=== PATIENT | male | born 1955 | race Caucasian/White ===

== ENCOUNTER → 2019-10-15 09:39 | Outpatient (CLI) | payer MEDICARE, BC, SELFPAY ==
[2019-10-15 10:56] LABS: Add Manual Diff / Slide Review NO; Basophils Absolute Auto 0 /uL (0-100); Basophils Percent Auto 0.7 % (0-2); Eosinophils Absolute Auto 300 /uL (0-450); Eosinophils Percent Auto 4.6 % (2-4); Hematocrit 45.5 % (41-53); Hemoglobin 15.6 g/dL (13.5-17.5); Lymphocytes Absolute Auto 1200 /uL (1100-4500); Lymphocytes Percent Auto 17.8 % (25-40); Mean Corpuscular HGB Conc 34.2 % (30-36); Mean Corpuscular Hemoglobin 29.7 PG (26-34); Mean Corpuscular Volume 86.8 fL (80-100); Monocytes Absolute Auto 700 /uL (0-900); Monocytes Percent Auto 10.4 % (3-14); Neutrophils Absolute Auto 4600 /uL (1500-7000); Neutrophils Percent Auto 66.5 % (50-75); Platelet Count 226 X10^3/uL (150-400); Red Blood Cell Count 5.25 X10^6/uL (4.5-5.9); Red Cell Distribution Width 14.2 % (11.6-14.8); White Blood Cell Count 6.9 X10^3/uL (4.5-11.0)
[2019-10-15 10:58] LABS: BUN Creatinine Ratio 23.3 (6-22); Blood Urea Nitrogen 21 mg/dL (9-20); Calcium 9.8 mg/dL (8.4-10.2); Carbon Dioxide 31 mmol/L (22-32); Chloride 103 mmol/L (98-107); Estimated Glomerular Filt Rate > 60.0 mL/min (>60); Glucose 74 mg/dL (80-110); HEMOLYSIS < 15 (0-50); Potassium 4.9 mmol/L (3.4-5.1); Sodium 143 mmol/L (137-145)
== END ==
PROVIDERS: Visit Provider Orthopaedic Surgery
DX: Z01.818 Encounter for other preprocedural examination (principal); Z01.812 Encounter for preprocedural laboratory examination
CPT/HCPCS: 36415; 80048; 85025; 93005

== ENCOUNTER 2019-11-07 15:17 | Observation (INO) | payer MEDICARE, BC, SELFPAY ==
[2019-10-25 13:53] VITALS: BMI 27.5
[2019-11-06] VITALS (12 sets, daily range): BP systolic 106–145; BP diastolic 53–79; PULSE 54–104; RESP 10–16; TEMP 35.7–37.3; O2SAT 93–100; BMI 25.7
--- NOTE | 2019-11-06 | DI.RAD.S_ITS ---
PROCEDURE: XR LUMBAR SPINE 2-3V INDICATIONS: L5-S1 TLIF TECHNIQUE: Fluoroscopic images were obtained during an operative procedure and submitted for interpretation following the completion of the procedure. COMPARISON: Outside Film, MR, MR LUMBAR SPINE WITHOUT CONTRAST, 08/28/2019, 10:48. FINDINGS: These fluoroscopic images were performed for intraoperative localization. On these images, bilateral pedicle screws with vertical fixation rods in this patient can be seen in L5-S1. Please correlate with intraoperative findings. IMPRESSION: Normal intraoperative examination. Dictated by: Gopal Denis M.D. on 11/06/2019 at 13:08 Approved by: Gopal Denis M.D. on 11/06/2019 at 13:08
--- NOTE | 2019-11-06 10:23 | PM.PREOP ---
Pre-operative Note Interval Note History & Physical reviewed/Exam performed by Physician: Yes Changes to H&P: No
--- NOTE | 2019-11-06 10:24 | P.OP_ITS ---
Operative Date/Time/Diagnoses Date of procedure: 11/06/19 Time of procedure: 13:29 Pre-op diagnosis: Lumbar stenosis with radiculopathy Post-op diagnosis: same Procedure & Clinicians Procedure: L5-S1 TLIF (post/post interbody fusion) with cage L5, S1 screws Iliac crest bone graft aspirate L5-S1 laminectomy Use of microscope Placement of epidural catheter Same procedure as scheduled: Yes Indications: [age] year old male with intractable pain from stenosis. They had failed conservative management and requested operative intervention. Risks and benefits of surgery were discussed and appropriate consents were obtained. Surgeon: Edward Mares Podiatric Technician: Yajaira Marte Anesthesia Type: General Operative Notes Findings: None Closure Type: primary Specimen(s): none sent Prosthetic devices, grafts, tissues, transplants, or devices: NuVasive MAS Reline screws Globus Rise cage Applied: catheter Estimated Blood Loss (mL): 20 Blood products transfused: none Procedure in detail: The patient was brought to the operating room and intubated on the table. A time-out was performed. They were then rolled over to the well- padded Joao table in the prone position. Preoperative antibiotics were given. The back was prepped and draped in the standard sterile fashion. Using fluoroscopy, a 4 cm longitudinal incision was made to the well-marked right of the midline. We used Bovie to come down to and split the lumbodorsal fascia. Using fluoroscopy and monitoring, we then percutaneously placed Jamshidi needles down the pedicles of L5 and S1 on the right side. These were changed out to guidewires and then we tapped and then placed the NuVasive MAS Reline screw shanks. We then opened up the retractors and used Bovie to clear up the posterolateral gutter as well as medially along the lamina to the spinous processes. A bur was used to decorticate the transverse processes. We brought in the microscope. Using a combination of bur and Kerrison rongeurs, a laminectomy was performed from the right side. We cleared over past the midline and carefully depressed the dura until we were able to decompress the opposite side. We cleared out the neural foramen. The main decompression was primarily in the subarticular range and the foramen, which required a facetectomy to decompress. This completed the laminectomy at L5-S1. This was separate and distinct from the TLIF approach as we were decompressing the canal and the nerves. We then began the TLIF prep. We carefully cleaned up the remainder of the foramen until we could easily retract the exiting root as well as clearing medially below the dura and expose the disc space. The disc was prepped with bipolar and then an annulotomy was performed. We performed a diskectomy using a combination of paddles, oskar, pituitaries, and curettes. We distracted the disc using a paddle and locked the retractor in an open position. We then filled the disc space with Osteocel bone graft. We then placed the globus Rise cage under fluoroscopy and then filled this in with more bone graft. The distraction on the retractor was released to compress down. This completed the posterior interbody fusion portion of the TLIF at L5-S1. We then placed the screw heads, cecile, and locked down the set screws. The wound was copiously irrigated. A small stab incision was made over the PSIS. We used a Jamshidi needle to as pirate several mL of bone marrow from the pelvis. This was mixed with the remaining Osteocel and combined with all of the locally harvested bone graft and placed in the posterolateral gutter for the posterior fusion of the TLIF at L5- S1. An epidural catheter was then placed in the spinal canal by carefully depressing the dura and advancing it 6 cm cephalad under the remaining lamina without resis tance. The muscle fascia was closed. The catheter was then injected with a solution containing 4 mL of 0.5% Marcaine, 1 mg Stadol, 4 mg Duramorph, and 100 mcg of fentanyl. This was injected without resistance and the catheter was pulled. We then went to the opposite side. Again using fluoroscopy, a 3 cm incision was made and Bovie was used to come down to split the fascia. Using neural monitor ing and fluoroscopy, Jamshidi needles were advanced down the pedicles of L5 and S1 on the left side. These were switched over guidewires, tapped, and screws placed. We then placed a cecile and locked the set screws on this side. The wound was irrigated. The fascia was closed. Vancomycin powder was placed in the wounds. The superficial and skin were closed. A sterile dressing was placed. The patient was then rolled over extubated and brought to recovery room without complications. Complications: none Post-operative Condition: stable Disposition: PACU Plan for aftercare: Inpatient. Up with therapy.
[2019-11-06] MEDS: LACTATED RINGERS 1,000 ML 42 ML IV (10:38)
[2019-11-06] MEDS: MIDAZOLAM 2 MG/2 ML VIAL IV (11:00)
[2019-11-06] MEDS: CEFAZOLIN 2 GM/100 ML FROZ.PIGGY IV (11:04)
--- NOTE | 2019-11-06 11:48 | SUR.OPER ---
Prone on spine table, head in foam head support, padded chest and pelvic supports, gel pad at knees, lower legs supported by pillows; nipples, genitalia and toes free of pressure, arms secured on foam padded arm boards at <90 degrees abduction. Tape over blanket at thigh secured to table.
[2019-11-06] MEDS: VANCOMYCIN 1,000 MG VIAL 1000 MG TOP (11:52)
[2019-11-06] MEDS: THROMBIN (RECOMBINANT) 5,000 UNIT VIAL 5000 UNIT TOP (11:52)
[2019-11-06] MEDS: SODIUM CHLORIDE 0.9% 1,000 ML, GENTAMICIN 80 MG IRR (11:52)
[2019-11-06] MEDS: BUPIVACAINE 0.5% (PF) 4 ML, MORPHINE-PF 4 MG, BUTORPHANOL 1 MG, fentaNYL 100 MCG INJ (13:02)
[2019-11-06] MEDS: LACTATED RINGERS 1,000 ML 125 ML IV ×2 (14:53→22:56)
[2019-11-06] MEDS: HYDROCODONE/ACET 5/325 TABLET 1 TAB PO (15:01)
[2019-11-06] MEDS: CELECOXIB 200 MG CAPSULE 400 MG PO (15:03)
--- NOTE | 2019-11-06 15:40 | PT.IIE ---
Current Diagnoses Other intervertebral disc degeneration, lumbar region (11/06/19) Surgery Performed Operation Date: 11/06/19 12:15 Actual Procedures p L5S1 laminectomy and instrumentated fusion (TLIF) w/ bone graft - Edward Mares MD Surgical History (Last Updated 10/25/19 @ 14:10 by Priyanka Cali RN) Hx of colonoscopy (Acute) No history of previous surgery (Acute) Medical History (Last Updated 10/25/19 @ 14:10 by Priyanka Cali RN) Arthritis (Acute) Colonic polyp (Acute) GERD (gastroesophageal reflux disease) (Acute) HLD (hyperlipidemia) (Acute) Psoriasis (Acute) Psoriatic arthritis (Acute) Sciatica (Acute) Physical Therapy Inpatient Evaluation/Re-Eval M1 PT/OT-IP Prior Functional Status Start: 11/06/19 16:55 Freq: NEEDED Status: Active Protocol: Document 11/06/19 15:40 AB (Rec: 11/06/19 17:07 AB [id number]) Medical Review Prior Functional Status Medical History Reviewed Yes Communication able to make needs known Mobility and Gait pt stated that he is independent with all mobilities and ambulation without AD Social History Household Members spouse Living Arrangements House Number of Floors (Floors) One Floor Number of Stairs To Enter/Railing? 2 steps to enter with R rail ascending Home Environment Standard Height Toilet,Walk in Shower,Tub/Shower Home Equipment Hand Held Shower M2 PT-IP Current Condition Start: 11/06/19 16:55 Freq: NEEDED Status: Active Protocol: Document 11/06/19 15:40 AB (Rec: 11/06/19 17:07 AB [id number]) Physical Therapy Current Condition Current Condition Evaluation Date 11/06/19 Treatment Diagnosis s/cp L5S1 TLIF; difficulty in walking Onset Date 11/06/2019 Precautions Lumbar Precautions Log Roll,No Twisting,Limit Bending,Lifting Restriction of 10 lbs,Gait Belt above Incisional Area M3 PT-IP Subjective Start: 11/06/19 16:55 Freq: NEEDED Status: Active Protocol: Document 11/06/19 15:40 AB (Rec: 11/06/19 17:07 AB [id number]) Subjective Physical Therapy Visit Type Type Initial Evaluation Visit Start Time 15:40 Visit Stop Time 16:25 Total Visit Minutes 45 Number of EDITOR MANAGING NEWSPAPER Visits 0 Physical Therapy Visit Comments Patient Comments pt agreeable to do PT Therapy Pain Assessment Pain When Pain Assessed At Rest Pain Present Pain Present Pain Reported Location Back Intensity 4 M4 PT-IP Mobility and Gait Start: 11/06/19 16:55 Freq: NEEDED Status: Active Protocol: Document 11/06/19 15:40 AB (Rec: 11/06/19 17:07 AB [id number]) PT-Bed Mobility Assessment Rolling Type of Rolling Log Rolling Level of Assist Standby Assistance Supine to Sit Supine to Sit Standby Assistance Sit to Supine Sit to Supine Standby Assistance Scooting Scooting to Edge of Bed Standby Assistance PT-Transfer Assessment Sit to and From Stand Sit to and from Stand Minimal Assistance,1 Person Assistance,Use of Upper Extremities Equipment Transfer Assistive Device Gait Belt,Front Wheeled Walker Orthotic/Prosthetic Devices or Brace: No Comments Mobility Comments educated pt on back precautions and log roll bed mobility. pt completed bed mobility supine to sit SBA with cues for techniques. pt was able to sit on EOB SBA. completed sit to stand min A and cues and ambulated in room using FWW min A and cues. pt requested to go back to bed afterwards. completed sit to supine SBA and cues. pt completed supine<>sit again SBA but with cues needed. positioned pt on bed. call light and table placed within reach. Left pt with spouse in room. Gait Assessment Gait Gait Assistance Required: Minimum Assistance,1 Person Assist Distance (Feet) 25 Able to Maintain Weight Bearing Status Yes During Gait Assistive Devices Assistive Device Gait Belt,Front Wheeled Walker Orthotic/Prosthetic Devices or Brace: No Gait Deviations General Gait Pattern Antalgic,Decreased Stride Length,Decreased Feet Clearance,Step-to Gait Factors Limiting Gait Function Factors Limiting Gait Function Decreased Activity Tolerance, Decreased Strength,Limited Range of Motion,Pain,Poor Balance,Poor Safety Awareness Comments Gait Comments pt ambulated in room ~ 25 ft using FWW min a and cues. pt presents with unsteady gait with decrease step length and decrease elmer. PT-Balance Assessment Sitting Balance and Reactions Static Sitting Balance Ability Good Dynamic Sitting Balance Ability Good Standing Balance and Reactions Static Standing Balance Ability Fair Dynamic Standing Balance Ability Fair Device Used FWW M5 PT-IP Objective Assessments Start: 11/06/19 16:55 Freq: NEEDED Status: Active Protocol: Document 11/06/19 15:40 AB (Rec: 11/06/19 17:07 [id number]) Orientation Orientation/Cognition Level of Alertness Alert Orientation Name,Place,Situation Language Function Ability No Deficits Noted Safety Awareness Understands Safety Issues Memory Description Short Term Impaired Gross Range of Motion Lower Extremity ROM Assessment Within Functional Limits Strength Lower Extremity Strength Assessment Within Functional Limits Coordination Assessment Gross Coordination Gross Coordination WNL Sensation Assessment Sensation Gross Sensation WNL Muscle Tone Muscle Tone WNL Yes M6 PT-IP Treatment Start: 11/06/19 16:55 Freq: NEEDED Status: Active Protocol: Document 11/06/19 15:40 AB (Rec: 11/06/19 17:07 [id number]) Physical Therapy Treatment Education Education Provided Precautions,Weight Bearing Status,Post-Op Packet,Safety M7 PT-IP Assessment and Plan Start: 11/06/19 16:55 Freq: NEEDED Status: Active Protocol: Document 11/06/19 15:40 AB (Rec: 11/06/19 17:07 [id number]) PT Summary Assessment and Plan Potential Rehabilitation Potential Good Status of Condition at Evaluation Stable Summary Impairments Pain,ROM,Strength,Balance,Bed Mobility,Transfers,Gait, Activity Tolerance Assessment Summary pt requiring min A with ambulation using FWW. Pt does not have any DME and spouse will try to borrow a FWW and a shower chair. will have to f /u if spouse was able to obtain one. d/c plan depending on progress and will have to conduct caregiver training when appropriate as well as stair climbing training. will continue to asses pt's progress. Goals Bed Mobility Goal Independent Transfer Goal Independent,Front Wheeled Walker Gait Goal Independent,Front Wheel Walker Gait Distance 250 Other Goals up/down 2 steps R rail ascending SBA Days to Meet Goals 5 Frequency of Treatment Frequency Of Treatment Twice a Day Treatment Plan Physical Therapy Treatment Plan Bed Mobility Training,Transfer Training,Gait Training, Therapeutic Exercise,Balance Retraining,Post Op Education, Discharge Planning,Hot or Cold Pack,Neuromuscular Re-ed, Coordination Retraining,Manual Therapy Other Recommendations and Next Treatment ambulation, caregiver training Focus , stair training Recommendations To Nursing Amount of Assist Needed 1 Person Assist Discharge Recommendations PT Discharge Recommendations Home with Assistance Equipment Needed for Home Before FWW: if spouse was not able to Discharge obtain one for pt
[2019-11-06] MEDS: HYDROCODONE/ACET 5/325 TABLET 2 TAB PO ×2 (16:34→20:07)
[2019-11-06] MEDS: SENNOSIDES 8.6 MG TABLET 17.2 MG PO (20:06)
[2019-11-06] MEDS: CELECOXIB 200 MG CAPSULE PO (20:07)
[2019-11-06] MEDS: DOCUSATE 100 MG CAPSULE PO (20:07)
[2019-11-06] MEDS: SIMVASTATIN 20 MG TABLET PO (22:16)
[2019-11-07] VITALS (7 sets, daily range): BP systolic 117–138; BP diastolic 61–76; PULSE 49–59; RESP 16–17; TEMP 36.6–37.2; O2SAT 96–100
[2019-11-07] MEDS: HYDROCODONE/ACET 5/325 TABLET 2 TAB PO ×4 (00:24→17:49)
[2019-11-07 05:53] LABS: Hematocrit 37.5 % (41-53); Hemoglobin 13.3 g/dL (13.5-17.5)
[2019-11-07] MEDS: PANTOPRAZOLE 20 MG TABLET PO (06:10)
--- NOTE | 2019-11-07 07:53 | PM.PNPO.1 ---
Subjective Subjective Date Patient Seen: 11/07/19 Time Patient Seen: 07:53 Interval history: He is doing well. Pain about 4. No leg symptoms. Exam Vital Signs (past 8 hours): - 11/07/19 00:10 11/07/19 04:10 Temperature 97.9 F 98.2 F Pulse Rate 59 L 49 L Respiratory Rate 16 16 Blood Pressure 122/73 117/61 Pulse Oximetry 96 100 Oxygen Delivery Method Room Air Oxygen Flow Rate 0 Const Orientation: alert and oriented x3 Back/Spine/Pelvis Other: Mild drainage. 5/5 motor both lower extremities Objective Labs Result Diagrams: 11/07/19 05:35 Labs: Laboratory Results - last 24 hr 11/07/19 05:35 Hgb 13.3 L Hct 37.5 L Assessment & Plan Post-op Postoperative Procedures: Procedures Operation Date: 11/06/19 12:15 Actual Procedures Side Surgeon p L5S1 laminectomy and instrumentated fusion (TLIF) w/ bone graft Edward Mares MD he is doing well. Will mobilize today with physical therapy. Consider discharge home either this afternoon or tomorrow depending on how he does with therapy. Quality VTE Deep Vein Thrombosis/Pulmonary Embolism Present on Admission: No
[2019-11-07] MEDS: ASPIRIN EC 81 MG TABLET PO (09:40)
[2019-11-07] MEDS: DOCUSATE 100 MG CAPSULE PO ×2 (09:40→21:27)
[2019-11-07] MEDS: CELECOXIB 200 MG CAPSULE PO ×2 (09:40→21:27)
--- NOTE | 2019-11-07 10:11 | CM.DANOTE ---
DCP/Assessment: Reviewed chart. Patient is a 64yr old male [facility] lami performed by Dr. Mares on 11-06-19. Primary payor is 1)Medicare 2) out of State [employer]. Met wiht patient explained CM/SW role. Patient alert and oriented at time of visit. Patient reports that he is feeling good. Patient hopes to d/c home later today or most likely tomorrow. Therapy evaluations pending. Patient reports that his spouse is attempted to obtain FWW to borrow for patient for home use. Patient made aware that is she is unable to obtain to let [facility] staff know. P: Home when medically stable. Patient may need FWW order if spouse cannot obtain one to borrow. MICH Espinoza Discharge Planning/Care Management CM Discharge Assessment Start: 11/07/19 09:30 Freq: Status: Active Protocol: Document 11/07/19 10:06 KJS (Rec: 11/07/19 10:11 KJS [id number]) Discharge Planning Assessment Assigned Drosophere Operator MICH Espinoza Contact Information Sasha Gotti (spouse) # Advance Directives? No History Provided By Patient,Medical Record Prior Living Arrangements House Household Members spouse Type of transporation used prior to Drives own vehicle admit Independent with ADL's Yes Is patient alert and oriented? Yes Caregiver for Another No Comment Spouse trying to obtain FWW for patient to borrow. Barriers to Discharge No Discharge Plan Home Transportation Arrangement Spouse Whiteboard Updated in Patient Room with Yes name and ext. # of Drosophere Operator Review Status In Process Next Review Type Continued Stay Review Pre-Anesthesia Assessment Start: 10/25/19 13:53 Freq: Status: Complete Protocol: Document 10/25/19 13:53 CAB (Rec: 10/25/19 14:17 CAB [id number]) Pre-Anesthesia Assessment Patient Information Reviewed Via Phone Assessment Assessment Completed With Patient Diagnostic Results BMP/CMP,CBC,EKG Comment Labs/EKG @ 10/15/19 Primary Care Provider Darion Emerson Seen Specialist in Last 12 Months Yes Specialist Seen Orthopedist Primary Language Sinhala Head Operator Sulfide Required No Height 176.53 cm Weight 85.729 kg Body Mass Index (BMI) 27.5 Hearing Ability Normal Visual Impairment No Limitations Visual Assist Glasses Dentition Type Teeth, Natural Present,Partial - Lower Barriers to Learning None Other Aids No Hx Anesthesia Reactions No: previous anesthesia history Hx Family Anesthesia Reaction No Hx Malignant Hyperthermia No Hx Blood Transfusions No Anesthesia Review Requested No alcohol intake current alcohol intake frequency a few times a week Smoking Status Former smoker how long ago did patient quit smoking Quit approx 5 years ago Substance Use Type does not use Pain Present Pain Reported Musculoskeletal Symptoms Abnormal Gait,Back Pain, Difficulty Walking,Joint Pain, Radiating Pain into Limb History of Falling (Recent or History of No ) Patient is completely paralyzed or No completely immobile Mental Status Oriented to own ability Is patient on oxygen? No Does patient have LAZCANO/SOB No Hx Sleep Apnea No Currently Taking a Beta Roger No Can You Climb a Flight of Stairs Without Yes SOB Hx Chest Pain No Hx SOB No Hx Syncope or Dizziness No Anti-Coagulant Therapy No: ASA 81mg-for general health Has a Rug Cleaner No Cardiac Testing No Hx Pacemaker/ICD No Pacemaker Rep Required? No Cardiac Clearance Received Not Applicable Diet Type At Home Regular dysphagia No Urinary Catheter Present No Hx Urinary Self Catheterization No Diabetes No Hx Drug Resistant Organism No Presence of External or Internal Medical No Devices Have you traveled outside the [facility] in the last 30 days? Comment [place] 09/30/19-10/10/19 Marital Status Lives With spouse Prior Living Arrangements House Number of Floors (Floors) One Floor Support System Spouse Does the Patient Have Assistance After Yes Surgery Patient Discharge Plan Description Return Home Comment Pt advised 1-2 day length of stay per surgeon Feels Safe in Current Environment Yes Been Physically Hurt or Threatened By a No Person in Current Environment Do you have thoughts of harming yourself None or others? Are you currently considering suicide? No Do you have a plan to hurt yourself or No Plan others? Do You Have Any Spiritual Beliefs That No May Affect Your HC Choices? Do You Have Any Cultural Practices That No May Affect Your HC Choices? Who Can We Speak to About Patient's Care Family, friends Identifying Code for Release of Patient Declines to issue Information Health Care Proxy/Next of Kin Sasha () Health Care Proxy Emergency Contact Name Sasha () Emergency Contact Advance Directives? No Power of Put In Beat Adjuster No PAC Instructions Durable medical equipment, Medications to take/avoid, Nasal antibiotic,No ETOH/ petroleum product on skin DOS, NPO,Post-op transportation,Pre -surgical wash,Sturdy shoes/ comfortable clothes,Do not bring valuables and remove jewelry
--- NOTE | 2019-11-07 10:15 | PT.IPTN ---
Current Diagnoses Other intervertebral disc degeneration, lumbar region (11/06/19) Surgery Performed Operation Date: 11/06/19 12:15 Actual Procedures p L5S1 laminectomy and instrumentated fusion (TLIF) w/ bone graft - Edward Mares MD Physical Therapy Treatment Note M2 PT-IP Current Condition Start: 11/06/19 16:55 Freq: NEEDED Status: Active Protocol: Document 11/06/19 15:40 AB (Rec: 11/06/19 17:07 AB [id number]) Physical Therapy Current Condition Current Condition Evaluation Date 11/06/19 Treatment Diagnosis s/cp L5S1 TLIF; difficulty in walking Onset Date 11/06/2019 Precautions Lumbar Precautions Log Roll,No Twisting,Limit Bending,Lifting Restriction of 10 lbs,Gait Belt above Incisional Area M3 PT-IP Subjective Start: 11/06/19 16:55 Freq: NEEDED Status: Active Protocol: Document 11/07/19 10:15 DLM (Rec: 11/07/19 11:07 DLM [id number]) Subjective Physical Therapy Visit Type Type Treatment Note Visit Start Time 09:40 Visit Stop Time 10:15 Total Visit Minutes 35 Number of HEALTHCARE SCIENCE SPECIALIST Visits 0 Physical Therapy Visit Comments Patient Comments He has questions about log rolling and if he can lie on his side Therapy Pain Assessment Pain When Pain Assessed During Mobility Pain Present Pain Present Pain Reported Location Back Intensity 4 Scale Used Numeric (1 - 10) Description Aching Pain Behaviors Guarding Pain Management Techniques Re-positioning,Timing of Activity with Medications M4 PT-IP Mobility and Gait Start: 11/06/19 16:55 Freq: NEEDED Status: Active Protocol: Document 11/07/19 10:15 DLM (Rec: 11/07/19 11:07 DLM [id number]) PT-Bed Mobility Assessment Rolling Type of Rolling Log Rolling,Roll to Right,Roll to Left Level of Assist Standby Assistance Supine to Sit Supine to Sit Standby Assistance Sit to Supine Sit to Supine Standby Assistance Scooting Scooting to Edge of Bed Independent PT-Transfer Assessment Sit to and From Stand Sit to and from Stand Standby Assistance,Use of Upper Extremities Equipment Transfer Assistive Device Gait Belt,Front Wheeled Walker Transfers Transfer Destination Chair Transfer Technique Stand Step Pivot Transfer Ability Level of Assist Standby Assistance,Use of Upper Extremities Comments Mobility Comments Pt up to recliner this visit with call light close, educated pt in how to adjust the chair for comfort. Gait Assessment Gait Gait Assistance Required: Standby Assistance Distance (Feet) 200 Assistive Devices Assistive Device Gait Belt,Front Wheeled Walker Factors Limiting Gait Function Factors Limiting Gait Function Decreased Activity Tolerance Comments Gait Comments educated pt in safe use of FWW for gait Stair Climbing Assessment Evaluation Level of Assist On Stairs Standby Assistance Devices Stair Climbing Assistive Devices Left Railing Technique/Endurance Stair Climbing Direction Ascend and Descend Stair Climbing Technique Step Over Step,Step to Step Number of Steps Climbed 3 Stair Climbing Set # Repetitions (reps) 1 Comments Stair Climbing Comments mild increase in pain in his back during stairs but able to manage it by using step-to technique PT-Balance Assessment Sitting Balance and Reactions Static Sitting Balance Ability Good Dynamic Sitting Balance Ability Good Standing Balance and Reactions Static Standing Balance Ability Good Dynamic Standing Balance Ability Good Device Used FWW M5 PT-IP Objective Assessments Start: 11/06/19 16:55 Freq: NEEDED Status: Active Protocol: Document 11/06/19 15:40 AB (Rec: 11/06/19 17:07 AB [id number]) Orientation Orientation/Cognition Level of Alertness Alert Orientation Name,Place,Situation Language Function Ability No Deficits Noted Safety Awareness Understands Safety Issues Memory Description Short Term Impaired Gross Range of Motion Lower Extremity ROM Assessment Within Functional Limits Strength Lower Extremity Strength Assessment Within Functional Limits Coordination Assessment Gross Coordination Gross Coordination WNL Sensation Assessment Sensation Gross Sensation WNL Muscle Tone Muscle Tone WNL Yes M6 PT-IP Treatment Start: 11/06/19 16:55 Freq: NEEDED Status: Active Protocol: Document 11/07/19 10:15 DLM (Rec: 11/07/19 11:07 DL [id number]) Physical Therapy Treatment Exercises Exercises Ankle Pumps Education Education Provided Precautions,Post-Op Packet, Safety Other Treatments Other Treatment Performed answered his 's questions about home safety issues and progression of activity at home M7 PT-IP Assessment and Plan Start: 11/06/19 16:55 Freq: NEEDED Status: Active Protocol: Document 11/07/19 10:15 DLM (Rec: 11/07/19 11:07 DL [id number]) PT Summary Assessment and Plan Summary Impairments Pain,ROM,Strength,Balance,Bed Mobility,Transfers,Gait, Activity Tolerance Progress Towards Goals Progressing Toward Goals Assessment Summary Saurav is progressing well post -op. He tolerated gait in the [place] well with fWW. Pt and his appear anxious about managing his post-op precautions at home. Education provided. He appears safe to discharge home with his when he is medically cleared. Goals Bed Mobility Goal Independent Transfer Goal Independent,Front Wheeled Walker Gait Goal Independent,Front Wheel Walker Gait Distance 250 Other Goals up/down 2 steps R rail ascending SBA Days to Meet Goals 5 Frequency of Treatment Frequency Of Treatment Twice a Day Treatment Plan Physical Therapy Treatment Plan Bed Mobility Training,Transfer Training,Gait Training, Therapeutic Exercise,Balance Retraining,Post Op Education, Discharge Planning,Hot or Cold Pack,Neuromuscular Re-ed Other Recommendations and Next Treatment continue spine precaution Focus education Recommendations To Nursing Amount of Assist Needed 1 Person Assist Discharge Recommendations PT Discharge Recommendations Home with Assistance Equipment Needed for Home Before FWW: if spouse was not able to Discharge obtain one for pt
--- NOTE | 2019-11-07 11:15 | OT.IP.EVAL ---
Current Diagnoses Other intervertebral disc degeneration, lumbar region (11/06/19) Surgery Performed Operation Date: 11/06/19 12:15 Actual Procedures p L5S1 laminectomy and instrumentated fusion (TLIF) w/ bone graft - Edward Mares MD Past Medical History (Last Updated 10/25/19 @ 14:10 by Priyanka Cali, RN) Arthritis (Acute) Colonic polyp (Acute) GERD (gastroesophageal reflux disease) (Acute) HLD (hyperlipidemia) (Acute) Psoriasis (Acute) Psoriatic arthritis (Acute) Sciatica (Acute) Surgical History (Last Updated 10/25/19 @ 14:10 by Priyanka Cali RN) Hx of colonoscopy (Acute) No history of previous surgery (Acute) Occupational Therapy Inpatient Evaluation/Re-Eval M1 PT/OT-IP Prior Functional Status Start: 11/07/19 11:15 Freq: NEEDED Status: Active Protocol: Document 11/07/19 11:16 [facility] (Rec: 11/07/19 11:38 [facility] [id number]) Medical Review Prior Functional Status Medical History Reviewed Yes Communication able to make needs known Mobility and Gait pt stated that he is independent with all mobilities and ambulation without AD Activities of Daily Living and IADL's Per pt states was independent with ADl and IADL's prior. Social History Household Members spouse Living Arrangements House Number of Floors (Floors) One Floor Number of Stairs To Enter/Railing? 2 steps to enter with R rail ascending Home Environment Standard Height Toilet,Walk in Shower,Tub/Shower Home Equipment Hand Held Shower M2 OT-IP Current Condition Start: 11/07/19 11:15 Freq: Status: Active Protocol: Document 11/07/19 11:16 [facility] (Rec: 11/07/19 11:38 [facility] [id number]) Occupational Therapy Current Condition Current Condition Evaluation Date 11/07/19 Treatment Diagnosis S/P L5-S1 Diagnosis Onset Date 11/06/19 Post Operative Precautions Lumbar Precautions Log Roll,No Twisting,Limit Bending,Lifting Restriction of 10 lbs,Gait Belt above Incisional Area Weight Bearing Status Weight Bearing Status Weight Bear as Tolerated M3 OT- IP Subjective and Pain Start: 11/07/19 11:15 Freq: Status: Active Protocol: Document 11/07/19 11:16 [facility] (Rec: 11/07/19 11:38 [facility] [id number]) OT- Subjective Occupational Therapy Visit Type Type Initial Evaluation Visit Start Time 11:00 Visit Stop Time 11:15 Occupational Therapy Visit Comments Patient Comments Initally pt just wanting to rest and then agreed to get up for OT eval. Pt requesting to shower tomorrow when pt's present for training. Patient/Caregiver Goals To go home tomorrow. OT Pain Assessment Pain When Pain Assessed At Rest Pain Present Pain Present Pain Reported Location Back Intensity 5 Scale Used Numeric (1 - 10) M4 OT- IP ADL's Start: 11/07/19 11:15 Freq: Status: Active Protocol: Document 11/07/19 11:16 [facility] (Rec: 11/07/19 11:38 [facility] [id number]) OT [id number] Comments OT Self-Feeding Comments Not at meal time. OT ADL-Grooming Comments OT Grooming Comments Pt requesting to do grooming needs after lunch. OT ADL-Dressing General Eval Lower Body Dressing Ability Standby Assistance Comments OT Dressing Comments Pt able to comfortably cross his legs to be able to toshia/ doff his socks. Able to show pt LB dressing equipment and at this time will not need any . Pt states can assist him in the shower as needed. OT ADL-Toileting General Evaluation Toileting Ability Standby Assistance Comments OT Toileting Comments VC for incorporation of back precautions. Pt shown to stand with FWW over the toilet or just sit to the toilet as pt states will do now. Pt has a counter to push up from to stand at home but feeling more comfortable to push up from the FWW at this time and able to do so safely. OT ADL-Bathing Comments OT Bathing Comments Pt states to shower tomorrow. M5 OT- IP IADL's Start: 11/07/19 11:15 Freq: Status: Active Protocol: Document 11/07/19 11:16 [facility] (Rec: 11/07/19 11:38 [facility] [email or web address]) OT-Instrumental Activities of Daily Living Home Safety Awareness Home Safety Comments Pt's to assist for IADl needs at home. M6 OT- IP Functional Cognition Start: 11/07/19 11:15 Freq: Status: Active Protocol: Document 11/07/19 11:16 [facility] (Rec: 11/07/19 11:38 [facility] [id number]) Cognitive Factors Limiting Selfcare Function Cognitive Ability Level of Alertness Alert Patient Orientation Name,Place,Situation Attention Span Ability Capable of Focused Attention, Capable of Sustained Attention Ability to Follow Commands Able to Follow One Step Commands Memory Description Short Term Impaired Safety Awareness Decreased Ability to Apply Precautions Cognitive Comments Cognitive Assessment Comments Pt needing vc to incorporate back precautions during ADl and functional mobility needs. Pt trying to twist to flush the toilet and needing vc to stop. 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 OT- Balance Assessment Sitting Balance and Reactions Static Sitting Balance Ability Normal Dynamic Sitting Balance Ability Good Standing Balance and Reactions Static Standing Balance Ability Fair M8 OT- IP Objective Assessments Start: 11/07/19 11:15 Freq: Status: Active Protocol: Document 11/07/19 11:16 [facility] (Rec: 11/07/19 11:38 [facility] [id number]) OT Gross Range of Motion Upper Extremity Range of Motion Assessment Within Functional Limits OT Strength Upper Extremity Strength Assessment Within Functional Limits OT-Muscle Tone Assessment Muscle Tone WNL Yes M9 OT- IP Assessment and Plan Start: 11/07/19 11:15 Freq: Status: Active Protocol: Document 11/07/19 11:16 [facility] (Rec: 11/07/19 11:38 [facility] [email or web address]) OT Summary Assessment and Plan Potential Rehabilitation Potential Good Analytic Complexity at Evaluation Low Summary OT Impairments Pain,Functional Cognition, Functional Mobility,Dressing, Toileting,Bathing,Toilet Transfers,Shower Transfers Progress Towards Goals Progressing Toward Goals Assessment Summary Pt low complexity and main barrier are steps, and pt remembering to incorporate back precautions for needs. Pt looking to go home tomoorow after caregiver training with his . Pt's not present for OT eval as out trying to obtain a FWW and shower chair. Goals Grooming Goal Independent Dressing Goal Independent Toileting Goal Independent Bathing Goal Standby Assistance Toilet Transfer Goal Independent Shower Transfer Goal Contact Guard Assistance Patient/Caregiver Education Goal Demonstrate Post-Op Precautions,Caregiver Independent Assisting Patient Days to Meet Goals 2 Frequency of Treatment Frequency Of Treatment Once a Day Treatment Plan OT Treatment Plan ADL Training,Functional Cognition Training,Functional Mobility,Patient/Family Education,Discharge Planning Other Treatment Recommendations and Next Shower and caregiver training. Treatment Focus Discharge Recommendations OT Discharge Recommendations Home with Assistance Home Equipment Needs FWW, shower chair.
[2019-11-07] MEDS: HYDROCODONE/ACET 5/325 TABLET 1 TAB PO ×2 (13:08→21:32)
--- NOTE | 2019-11-07 13:18 | PT.IPTN ---
Current Diagnoses Other intervertebral disc degeneration, lumbar region (11/06/19) Surgery Performed Operation Date: 11/06/19 12:15 Actual Procedures p L5S1 laminectomy and instrumentated fusion (TLIF) w/ bone graft - Edward Mares MD Physical Therapy Treatment Note M2 PT-IP Current Condition Start: 11/06/19 16:55 Freq: NEEDED Status: Active Protocol: Document 11/06/19 15:40 AB (Rec: 11/06/19 17:07 AB [id number]) Physical Therapy Current Condition Current Condition Evaluation Date 11/06/19 Treatment Diagnosis s/cp L5S1 TLIF; difficulty in walking Onset Date 11/06/2019 Precautions Lumbar Precautions Log Roll,No Twisting,Limit Bending,Lifting Restriction of 10 lbs,Gait Belt above Incisional Area M3 PT-IP Subjective Start: 11/06/19 16:55 Freq: NEEDED Status: Active Protocol: Document 11/07/19 12:57 SP (Rec: 11/07/19 13:32 SP [email or web address]) Subjective Physical Therapy Visit Type Type Treatment Note Visit Start Time 12:57 Visit Stop Time 13:18 Total Visit Minutes 21 Number of SERVICE DELIVERY MANAGER Visits 1 Physical Therapy Visit Comments Patient Comments Pt wanting to review log roll and stairs. Therapy Pain Assessment Pain When Pain Assessed During Mobility Pain Present Pain Present Pain Reported Location Back Intensity 3 Scale Used Numeric (1 - 10) Description Aching Pain Management Techniques Re-positioning,Timing of Activity with Medications M4 PT-IP Mobility and Gait Start: 11/06/19 16:55 Freq: NEEDED Status: Active Protocol: Document 11/07/19 12:57 SP (Rec: 11/07/19 13:50 SP [email or web address]) PT-Bed Mobility Assessment Rolling Type of Rolling Log Rolling,Roll to Right,Roll to Left Level of Assist Standby Assistance Supine to Sit Supine to Sit Standby Assistance Sit to Supine Sit to Supine Standby Assistance Scooting Scooting to Edge of Bed Independent PT-Transfer Assessment Sit to and From Stand Sit to and from Stand Standby Assistance,Use of Upper Extremities Equipment Transfer Assistive Device None,Bed Rail,Front Wheeled Walker Transfers Transfer Destination Bed,Chair Transfer Technique Stand Step Pivot Transfer Ability Level of Assist Standby Assistance,Use of Upper Extremities Comments Mobility Comments Pt up in recliner when arrived . Demonstrated good recliner adjustment self learned this am and back straight during sit<> stand. Pt was able to complete improved log roll and transitioning supine<> sitting post cuing for bent knees and keeping with shoulders to maintain spinal precautions. Pt was up in chair with call light in reach when left. Gait Assessment Gait Gait Assistance Required: Standby Assistance Distance (Feet) 230 Able to Maintain Weight Bearing Status Yes During Gait Assistive Devices Assistive Device None,Gait Belt,Front Wheeled Walker Comments Gait Comments Educated patient on spinal alignment step pivoting during turns using FWW SBA 230 ft, was able to ambulate with no AD 100ft CGA-SBA, wt shift deviation to R x1 with self recovery during R youth director of room. Stair Climbing Assessment Evaluation Level of Assist On Stairs Standby Assistance Devices Stair Climbing Assistive Devices Left Railing Technique/Endurance Stair Climbing Direction Ascend and Descend Stair Climbing Technique Step Over Step Number of Steps Climbed 3 Stair Climbing Set # Repetitions (reps) 3 Comments Stair Climbing Comments no change in pain during stairs this afernoon, consistant step over step SBA. PT-Balance Assessment Sitting Balance and Reactions Static Sitting Balance Ability Normal Dynamic Sitting Balance Ability Good Standing Balance and Reactions Static Standing Balance Ability Fair Dynamic Standing Balance Ability Good Device Used FWW M5 PT-IP Objective Assessments Start: 11/06/19 16:55 Freq: NEEDED Status: Active Protocol: Document 11/06/19 15:40 AB (Rec: 11/06/19 17:07 AB [id number]) Orientation Orientation/Cognition Level of Alertness Alert Orientation Name,Place,Situation Language Function Ability No Deficits Noted Safety Awareness Understands Safety Issues Memory Description Short Term Impaired Gross Range of Motion Lower Extremity ROM Assessment Within Functional Limits Strength Lower Extremity Strength Assessment Within Functional Limits Coordination Assessment Gross Coordination Gross Coordination WNL Sensation Assessment Sensation Gross Sensation WNL Muscle Tone Muscle Tone WNL Yes M6 PT-IP Treatment Start: 11/06/19 16:55 Freq: NEEDED Status: Active Protocol: Document 11/07/19 12:57 SP (Rec: 11/07/19 13:32 SP [email or web address]) Physical Therapy Treatment Education Education Provided Precautions,Safety Other Treatments Other Treatment Performed Upright posture, PPT/core activation awareness during stair mgt to decrease reported tension on LB step over step, improvement. M7 PT-IP Assessment and Plan Start: 11/06/19 16:55 Freq: NEEDED Status: Active Protocol: Document 11/07/19 12:57 SP (Rec: 11/07/19 13:32 SP [email or web address]) PT Summary Assessment and Plan Potential Rehabilitation Potential Good Status of Condition at Evaluation Stable Summary Impairments Pain,ROM,Strength,Balance,Bed Mobility,Transfers,Gait, Activity Tolerance Progress Towards Goals Progressing Toward Goals Assessment Summary Saurav is progressing well post -op. He tolerated gait in the [place] well with fWW and no AD, required CGA-SBA during gait no AD secondary to little unsteady during pivoting quickly, self recovery. Further education on spinal alignment during log roll and sit/ stand from chair with good demonstraion and self corrections when slightly side bend noted. He appears safe to discharge home with his when he is medically cleared. Goals Bed Mobility Goal Independent Transfer Goal Independent,Front Wheeled Walker Gait Goal Independent,Front Wheel Walker Gait Distance 250 Other Goals up/down 2 steps R rail ascending SBA Days to Meet Goals 5 Frequency of Treatment Frequency Of Treatment Twice a Day Treatment Plan Physical Therapy Treatment Plan Bed Mobility Training,Transfer Training,Gait Training, Therapeutic Exercise,Balance Retraining,Post Op Education, Discharge Planning,Hot or Cold Pack,Neuromuscular Re-ed Other Recommendations and Next Treatment continue review log roll knees Focus with shlds for spine precaution education, balance activities, gait without AD. Recommendations To Nursing Amount of Assist Needed 1 Person Assist Discharge Recommendations PT Discharge Recommendations Home with Assistance Equipment Needed for Home Before FWW: if spouse was not able to Discharge obtain one for pt
--- NOTE | 2019-11-07 18:51 | PC.NURSE ---
PATIENT IS AMBULATING WITH WALKER IN HALLS WITH ,STEADY ON HIS FEET.NO DIFFICULTY. INDEP IN ROOM
[2019-11-07] MEDS: GABAPENTIN 300 MG CAPSULE PO (21:28)
[2019-11-07] MEDS: SENNOSIDES 8.6 MG TABLET 17.2 MG PO (21:28)
[2019-11-07] MEDS: SIMVASTATIN 20 MG TABLET PO (21:28)
[2019-11-08 03:15] VITALS: BP 144/73; PULSE 52; RESP 16; TEMP 37; O2SAT 99
[2019-11-08] MEDS: HYDROCODONE/ACET 5/325 TABLET 2 TAB PO ×3 (03:38→12:09)
[2019-11-08] MEDS: PANTOPRAZOLE 20 MG TABLET PO (05:47)
--- NOTE | 2019-11-08 07:27 | PM.PNPO.1 ---
Subjective Subjective Date Patient Seen: 11/08/19 Time Patient Seen: 07:27 Interval history: He's doing well, pain 4/10. Got behind last night on his meds when he tried to go 8 hrs without anything. Now catching back up. He is able to get up and move independently. Exam Vital Signs (past 8 hours): - 11/07/19 23:56 11/08/19 03:15 Temperature 98.6 F 98.6 F Pulse Rate 53 L 52 L Respiratory Rate 16 16 Blood Pressure 138/76 144/73 H Pulse Oximetry 97 99 Oxygen Delivery Method Room Air Oxygen Flow Rate 0 Const Orientation: alert and oriented x3 Back/Spine/Pelvis Other: CDI. 5/5 motor BLE Objective Labs Result Diagrams: 11/07/19 05:35 Assessment & Plan Post-op Postoperative Procedures: Procedures Operation Date: 11/06/19 12:15 Actual Procedures Side Surgeon p L5S1 laminectomy and instrumentated fusion (TLIF) w/ bone graft Edward Mares MD He is doing well. Plan for discharge home today. Quality VTE Deep Vein Thrombosis/Pulmonary Embolism Present on Admission: No
[2019-11-08] MEDS: CELECOXIB 200 MG CAPSULE PO (08:03)
[2019-11-08] MEDS: DOCUSATE 100 MG CAPSULE PO (08:03)
[2019-11-08] MEDS: ASPIRIN EC 81 MG TABLET PO (08:03)
[2019-11-08 08:20] VITALS: BP 139/66; PULSE 59; RESP 17; TEMP 37.1; O2SAT 98
--- NOTE | 2019-11-08 09:07 | PT.IPTN ---
Current Diagnoses Other intervertebral disc degeneration, lumbar region (11/06/19) Surgery Performed Operation Date: 11/06/19 12:15 Actual Procedures p L5S1 laminectomy and instrumentated fusion (TLIF) w/ bone graft - Edward Mares MD Physical Therapy Treatment Note M2 PT-IP Current Condition Start: 11/06/19 16:55 Freq: NEEDED Status: Active Protocol: Document 11/06/19 15:40 AB (Rec: 11/06/19 17:07 AB [id number]) Physical Therapy Current Condition Current Condition Evaluation Date 11/06/19 Treatment Diagnosis s/cp L5S1 TLIF; difficulty in walking Onset Date 11/06/2019 Precautions Lumbar Precautions Log Roll,No Twisting,Limit Bending,Lifting Restriction of 10 lbs,Gait Belt above Incisional Area M3 PT-IP Subjective Start: 11/06/19 16:55 Freq: NEEDED Status: Active Protocol: Document 11/08/19 08:45 SP (Rec: 11/08/19 09:33 SP [id number]) Subjective Physical Therapy Visit Type Type Treatment Note Visit Start Time 08:45 Visit Stop Time 09:07 Total Visit Minutes 22 Notes complete caregiver training including donning gait belt, cued for log roll techique as needed, SBA transfers, gait, stair mgt. Number of ARCH SUPPORT MAKER Visits 2 Physical Therapy Visit Comments Patient Comments Pt willing to work with PT. Patient Goals Go home with today. Therapy Pain Assessment Pain When Pain Assessed During Mobility Pain Present Pain Present Pain Reported Location Back Intensity 3 Scale Used Numeric (1 - 10) Description Aching Pain Management Techniques Re-positioning,Timing of Activity with Medications M4 PT-IP Mobility and Gait Start: 11/06/19 16:55 Freq: NEEDED Status: Active Protocol: Document 11/08/19 08:45 SP (Rec: 11/08/19 09:33 SP [id number]) PT-Bed Mobility Assessment Rolling Type of Rolling Log Rolling,Roll to Right,Roll to Left Level of Assist Standby Assistance Supine to Sit Supine to Sit Independent Sit to Supine Sit to Supine Independent Scooting Scooting to Edge of Bed Independent Scooting Up and Down in Bed Independent PT-Transfer Assessment Sit to and From Stand Sit to and from Stand Standby Assistance,Use of Upper Extremities Equipment Transfer Assistive Device None,Gait Belt Transfers Transfer Destination Bed Transfer Technique Stand Step Pivot Transfer Ability Level of Assist Standby Assistance,Use of Upper Extremities Comments Mobility Comments Pt was in bathroom when arrived, in room. Pt walked out of bathroom using FWW, good demonstration proper use, Mod I. Pt complete supine<> sitting I, cued x1 for log roll instead of sit up to complete supine> sitting but no twisting noted. Pt able to scoot up in bed usign BUE and bridge motion good form and maintaining spinal precautions. provided cuing as needed and SBA during rest of mobility. Pt was up in chair when left with call light and all needs in reach. Gait Assessment Gait Gait Assistance Required: Standby Assistance,Contact Guard Assist Distance (Feet) 230 Able to Maintain Weight Bearing Status Yes During Gait Assistive Devices Assistive Device None,Gait Belt,Front Wheeled Walker Orthotic/Prosthetic Devices or Brace: No Factors Limiting Gait Function Factors Limiting Gait Function Pain Comments Gait Comments Pt was walking out of bathroom to bed approx 10 ft when arrived usign FWW Mod I, ambulated in hallway with no AD SBA with 1 wt shift deviation to R noted when asked to perform head turns and looking vertically self recovery but was ready to assist with CGA, approx 230 ft. cued slower pacing for safety. Stair Climbing Assessment Evaluation Level of Assist On Stairs Standby Assistance Devices Stair Climbing Assistive Devices Right Railing Technique/Endurance Stair Climbing Direction Ascend and Descend Stair Climbing Technique Step Over Step Number of Steps Climbed 3 Stair Climbing Set # Repetitions (reps) 1 Comments Stair Climbing Comments Ascend/descend 3 steps SBA RHR provided by , stable. PT-Balance Assessment Sitting Balance and Reactions Static Sitting Balance Ability Normal Dynamic Sitting Balance Ability Good Standing Balance and Reactions Static Standing Balance Ability Good Dynamic Standing Balance Ability Fair Device Used no AD Balance Tests Tandem Standing 3 sec Comments Other Balance Tests/Deviations/Treatment NBOS feet together with EO/EC : 10 sec stable, tandem needed UE support to get into position only 3 sec before need use of UE for support, cued for wt between BLE and glut faciliation. M5 PT-IP Objective Assessments Start: 11/06/19 16:55 Freq: NEEDED Status: Active Protocol: Document 11/06/19 15:40 AB (Rec: 11/06/19 17:07 AB [id number]) Orientation Orientation/Cognition Level of Alertness Alert Orientation Name,Place,Situation Language Function Ability No Deficits Noted Safety Awareness Understands Safety Issues Memory Description Short Term Impaired Gross Range of Motion Lower Extremity ROM Assessment Within Functional Limits Strength Lower Extremity Strength Assessment Within Functional Limits Coordination Assessment Gross Coordination Gross Coordination WNL Sensation Assessment Sensation Gross Sensation WNL Muscle Tone Muscle Tone WNL Yes M6 PT-IP Treatment Start: 11/06/19 16:55 Freq: NEEDED Status: Active Protocol: Document 11/08/19 08:45 SP (Rec: 11/08/19 09:33 SP [id number]) Physical Therapy Treatment Exercises Exercises Ankle Pumps Education Education Provided Precautions,Safety Other Treatments Other Treatment Performed glut stretch seated fig 4, SKTC supine assist decrease posterior legs tightness reported, Trans ab engagement. M7 PT-IP Assessment and Plan Start: 11/06/19 16:55 Freq: NEEDED Status: Active Protocol: Document 11/08/19 08:45 SP (Rec: 11/08/19 09:33 SP [id number]) PT Summary Assessment and Plan Potential Rehabilitation Potential Good Status of Condition at Evaluation Stable Summary Impairments Pain,ROM,Strength,Balance,Bed Mobility,Transfers,Gait, Activity Tolerance Progress Towards Goals Progressing Toward Goals Assessment Summary Saurav is progressing well post -op. See mobility, Mod I ambulate with FWW, SBA-CGA no AD provided by secondary to deviation with head turns. Indep bed mobility with log roll technique. Recommended use of fWW for mobility at this time for safety with balance support and outpatient PT. Pt is able to go home with will provide assistance when medically stable. Goals Bed Mobility Goal Independent Transfer Goal Independent,Front Wheeled Walker Gait Goal Independent,Front Wheel Walker Gait Distance 250 Days to Meet Goals 5 Frequency of Treatment Frequency Of Treatment Twice a Day Treatment Plan Physical Therapy Treatment Plan Bed Mobility Training,Transfer Training,Gait Training, Therapeutic Exercise,Balance Retraining,Post Op Education, Discharge Planning,Hot or Cold Pack,Neuromuscular Re-ed Other Recommendations and Next Treatment c Focus Recommendations To Nursing Amount of Assist Needed Standby Assistance Discharge Recommendations PT Discharge Recommendations Home with Assistance Equipment Needed for Home Before got FWW for home. Discharge
--- NOTE | 2019-11-08 09:43 | OT.IP.TRT ---
Current Diagnoses Other intervertebral disc degeneration, lumbar region (11/06/19) Surgery Performed Operation Date: 11/06/19 12:15 Actual Procedures p L5S1 laminectomy and instrumentated fusion (TLIF) w/ bone graft - Edward Mares MD Occupational Therapy Treatment Note M2 OT-IP Current Condition Start: 11/07/19 11:15 Freq: Status: Active Protocol: Document 11/07/19 11:16 [facility] (Rec: 11/07/19 11:38 [facility] [id number]) Occupational Therapy Current Condition Current Condition Evaluation Date 11/07/19 Treatment Diagnosis S/P L5-S1 Diagnosis Onset Date 11/06/19 Post Operative Precautions Lumbar Precautions Log Roll,No Twisting,Limit Bending,Lifting Restriction of 10 lbs,Gait Belt above Incisional Area Weight Bearing Status Weight Bearing Status Weight Bear as Tolerated M3 OT- IP Subjective and Pain Start: 11/07/19 11:15 Freq: Status: Active Protocol: Document 11/08/19 10:14 [facility] (Rec: 11/08/19 10:27 [facility] [id number]) OT- Subjective Occupational Therapy Visit Type Type Treatment Note Visit Start Time 09:43 Visit Stop Time 10:13 Total Visit Minutes 30 Occupational Therapy Visit Comments Patient Comments Pt wanting to shower, present for training. Patient/Caregiver Goals To go home today. OT Pain Assessment Pain When Pain Assessed At Rest Pain Present Pain Present Denied Pain M4 OT- IP ADL's Start: 11/07/19 11:15 Freq: Status: Active Protocol: Document 11/08/19 10:14 [facility] (Rec: 11/08/19 10:27 [facility] [id number]) OT ADL-Dressing General Eval Upper Body Dressing Ability Independent Lower Body Dressing Ability Standby Assistance Comments OT Dressing Comments Having to hand pt his shoes but able otherwise able to to cross his legs for LB dressing needs. OT ADL-Bathing Bathing Type Bathing Type Shower General Evaluation Bathing Ability Minimal Assistance Areas Needing Assistance Wash/Dry Back Devices Bathing Equipment Hand Held Shower Sprayer, Shower Chair with Arms,Grab Bars Comments OT Bathing Comments Pt able to pickle maker a shower chair. M5 OT- IP IADL's Start: 11/07/19 11:15 Freq: Status: Active Protocol: Document 11/07/19 11:16 [facility] (Rec: 11/07/19 11:38 [facility] [id number]) OT-Instrumental Activities of Daily Living Home Safety Awareness Home Safety Comments Pt's to assist for IADl needs at home. M6 OT- IP Functional Cognition Start: 11/07/19 11:15 Freq: Status: Active Protocol: Document 11/08/19 10:14 [facility] (Rec: 11/08/19 10:27 [facility] [id number]) Cognitive Factors Limiting Selfcare Function Cognitive Ability Level of Alertness Alert Patient Orientation Name,Place,Situation Attention Span Ability Capable of Focused Attention, Capable of Sustained Attention Ability to Follow Commands Able to Follow One Step Commands Memory Description Short Term Impaired Safety Awareness Decreased Ability to Apply Precautions Cognitive Comments Cognitive Assessment Comments Still needing MOD vc to adhere to back precautions. VC to sit to toshia his pants, vc to do one thing at a time as trying to hold onto his pants while trying to sit down. Pt' s has good safety awareness to be able to assist pt. M7 OT- IP Mobility and Balance Start: 11/07/19 11:15 Freq: Status: Active Protocol: Document 11/08/19 10:14 [facility] (Rec: 11/08/19 10:27 [facility] [id number]) OT-Transfer Assessment Sit to and From Stand Sit to and from Stand Standby Assistance Transfers Transfer Ability Standby Assistance Technique Transfer Destination Chair,Toilet Devices Transfer Assistive Devices Gait Belt,Front Wheeled Walker Comments Mobility Comments VC when coming to stand can either push on the walker put his hands on his knees to lower or raise himself up. M8 OT- IP Objective Assessments Start: 11/07/19 11:15 Freq: Status: Active Protocol: Document 11/07/19 11:16 [facility] (Rec: 11/07/19 11:38 [facility] [id number]) OT Gross Range of Motion Upper Extremity Range of Motion Assessment Within Functional Limits OT Strength Upper Extremity Strength Assessment Within Functional Limits OT-Muscle Tone Assessment Muscle Tone WNL Yes M9 OT- IP Assessment and Plan Start: 11/07/19 11:15 Freq: Status: Active Protocol: Document 11/08/19 10:14 [facility] (Rec: 11/08/19 10:27 [facility] [id number]) OT Summary Assessment and Plan Potential Rehabilitation Potential Good Analytic Complexity at Evaluation Low Summary OT Impairments Pain,Functional Cognition, Functional Mobility,Dressing, Toileting,Bathing,Toilet Transfers,Shower Transfers Progress Towards Goals Progressing Toward Goals Assessment Summary Pt's has good understanding how to assist pt and provide supervision for all needs. Pt mainly still having decreased safety awareness and needing cues to incorporate back precautions needs. Goals Days to Meet Goals 1 Frequency of Treatment Frequency Of Treatment Once a Day Treatment Plan OT Treatment Plan Functional Cognition Training, Functional Mobility,Patient/ Family Education,Discharge Planning Discharge Recommendations OT Discharge Recommendations Home with Assistance Home Equipment Needs FWW, shower chair.
--- NOTE | 2019-11-08 10:27 | PC.NURSE ---
Patient cleared by P.T. and O.T., with teaching completed with . Coversite was changed as edge was compromised, incisions noted to be well approximated without redness or drainage. IV dc'd intact. Patient plans to have lunch now and discharge to home afterwards with his . Continue to monitor.
--- NOTE | 2019-11-08 11:46 | PC.NURSE ---
Discharge instructions reviewed with patient and his , they state understanding and have no further questions or concerns at this time. IV dc'd intact. COversite to back CDI. Patient has follow up appointments scheduled. Prescriptions given to patient and his to fill at pharmacy of choice. Will discharge to home after lunch and next dose of pain medications (requested for ride home per patient).
== END 2019-11-08 12:30 | disposition home or self-care (01) ==
LOC: AC 11-08 11:41 → OR 11-08 13:08 → AC 11-08 13:10 → OR 11-08 13:11
PROVIDERS: Admitting Provider Orthopaedic Surgery; PCP Family Medicine; Visit Provider Orthopaedic Surgery
PROC: (CPT 22633; principal; 2019-11-06 12:15)
DX: M51.37 Other intervertebral disc degeneration, lumbosacral region (principal); M54.17 Radiculopathy, lumbosacral region; M48.062 Spinal stenosis, lumbar region with neurogenic claudication; E78.5 Hyperlipidemia, unspecified; M19.90 Unspecified osteoarthritis, unspecified site; L40.50 Arthropathic psoriasis, unspecified
CPT/HCPCS: 22633; 20939; 22853; 22840; 63047; 36415; 72100; 76000; 85014; 85018; 97116; 97161; 97165; 97530; 97535; C1776; G0378; J0595; J0690; J1100; J2250; J2274; J2405; J2704; J3010

== ENCOUNTER → 2020-05-07 09:31 | Outpatient (CLI) | payer MEDICARE, BC, SELFPAY ==
[2019-11-06 14:47] VITALS: BMI 25.7
--- NOTE | 2020-05-07 | DI.CT.S_ITS ---
PROCEDURE: CT LUMBAR SPINE WO CON INDICATIONS: Arthrodesis status TECHNIQUE: Noncontrast 3 mm thick sections acquired from the T12 level to the sacrum. Sagittal and coronal reformats were constructed. For radiation dose reduction, the following was used: automated exposure control. COMPARISON: [facility] [place], CR, XR LUMBAR SPINE 2 OR 3 VIEWS, 03/14/2020, 16:40. [facility] [place], CR, XR LUMBAR SPINE 2 OR 3 VIEWS, 11/21/2019, 10:55. [facility], CR, XR LUMBAR SPINE 2-3V, 11/06/2019, 14:13. Outside Film, MR, MR LUMBAR SPINE WITHOUT CONTRAST, 08/28/2019, 10:48. FINDINGS: Image quality: Excellent. Bones: Posterior fusion at L5-S1 with intervertebral prosthetic disc is noted. There is no hardware fracture or periprosthetic lucency. Trace retrolisthesis is present of L3 on L4. There are no osseous fractures or dislocations. No suspicious osseous lesions. Minimal disc bulge is present at L1-L2, L3-4, L4-5. Minimal canal narrowing is present at L3-4, questionably minimally progressive. There is improvement of previous spinal stenosis at L4-5. There remains significant narrowing within the subarticular recesses bilaterally at L4-5 with overall moderate to severe foraminal narrowing. Severe bilateral foraminal narrowing is present right greater than left. No interval change. Multilevel facet and ligamentum flavum hypertrophy are present. Soft tissues: No retroperitoneal masses or hematomas. Visualized aorta is normal in caliber. IMPRESSION: 1. L4-5 posterior fusion. Hardware is intact without evidence of periprosthetic lucency. 2. Improved spinal stenosis at L4-5 as above. 3. Unchanged significant foraminal and subarticular recess narrowing at L4-5 and L5-S1. Dictated by: Hazel Stewart M.D. on 05/07/2020 at 11:52 Approved by: Hazel Stewart M.D. on 05/07/2020 at 12:34
== END ==
PROVIDERS: PCP Family Medicine; Referring Provider Orthopaedic Surgery; Visit Provider Orthopaedic Surgery
DX: M48.061 Spinal stenosis, lumbar region without neurogenic claudication (principal); M48.07 Spinal stenosis, lumbosacral region; Z98.1 Arthrodesis status
CPT/HCPCS: 72131

== ENCOUNTER → 2020-10-20 09:30 | Outpatient (CLI) | payer MEDICARE, BC, SELFPAY ==
[2019-11-06 14:47] VITALS: BMI 25.7
[2020-10-20 10:42] LABS: Add Manual Diff / Slide Review NO; Basophils Absolute Auto 100 /uL (0-100); Basophils Percent Auto 0.9 % (0-2); Eosinophils Absolute Auto 300 /uL (0-450); Eosinophils Percent Auto 4.8 % (2-4); Hematocrit 42.8 % (41-53); Hemoglobin 14.7 g/dL (13.5-17.5); Lymphocytes Absolute Auto 1300 /uL (1100-4500); Lymphocytes Percent Auto 18.7 % (25-40); Mean Corpuscular HGB Conc 34.3 % (30-36); Mean Corpuscular Hemoglobin 29.7 PG (26-34); Mean Corpuscular Volume 86.5 fL (80-100); Monocytes Absolute Auto 600 /uL (0-900); Monocytes Percent Auto 9.1 % (3-14); Neutrophils Absolute Auto 4600 /uL (1500-7000); Neutrophils Percent Auto 66.5 % (50-75); Platelet Count 239 X10^3/uL (150-400); Red Blood Cell Count 4.95 X10^6/uL (4.5-5.9); Red Cell Distribution Width 13.7 % (11.6-14.8)
== END ==
PROVIDERS: PCP Family Medicine; Referring Provider Orthopaedic Surgery; Visit Provider Orthopaedic Surgery
DX: Z01.818 Encounter for other preprocedural examination (principal); Z01.812 Encounter for preprocedural laboratory examination
CPT/HCPCS: 36415; 85025; 93005

== ENCOUNTER → 2020-10-27 09:37 | Outpatient (CLI) | payer MEDICARE, BC, SELFPAY ==
[2019-11-06 14:47] VITALS: BMI 25.7
[2020-10-27 10:12] LABS: COVID19 -Nasal RAPID Negative (Negative)
== END ==
PROVIDERS: PCP Family Medicine; Visit Provider Nurse Practitioner Family
DX: Z01.812 Encounter for preprocedural laboratory examination (principal); Z20.822 Contact with and (suspected) exposure to COVID-19
CPT/HCPCS: 87635; C9803

== ENCOUNTER 2020-10-28 10:06 | Day surgery (SDC) | payer MEDICARE, BC, SELFPAY ==
[2019-11-06 14:47] VITALS: BMI 25.7
[2020-10-24 12:55] VITALS: BMI 27.3
[2020-10-28] VITALS (11 sets, daily range): BP systolic 96–168; BP diastolic 45–72; PULSE 61–79; RESP 12–18; TEMP 36.2–36.7; O2SAT 93–100; BMI 27.3
--- NOTE | 2020-10-28 | DI.RAD.S_ITS ---
PROCEDURE: XR LUMBAR SPINE 2-3V INDICATIONS: L4 LAMINECTOMY RIGHT HARDWARE REMOVAL TECHNIQUE: 2 views of the lumbar spine were acquired. COMPARISON: [facility], CR, XR LUMBAR SPINE 2-3V, 11/06/2019, 14:13. FINDINGS: Bones: This immediate postoperative examination shows placement of transverse pedicle screws and vertical fixation rods spanning L5-S1, with an interbody cage disc fixation device, centrally positioned. Soft tissues: Overlying bowel gas pattern is normal. No suspicious soft tissue calcifications. IMPRESSION: L5-S1 fusion procedure, with interbody cage disc prosthesis device normal in appearance. Dictated by: Mo Castellon M.D. on 10/28/2020 at 13:42 Approved by: Mo Castellon M.D. on 10/28/2020 at 13:42
--- NOTE | 2020-10-28 10:41 | PM.PREOP ---
Pre-operative Note COVID-19 COVID-19 status: Negative Result date/Date tested (Pos, Neg/Pending): 10/27/20 Interval Note History & Physical reviewed/Exam performed by Physician: Yes Changes to H&P: No
[2020-10-28] MEDS: LACTATED RINGERS 1,000 ML 42 ML IV (10:43)
[2020-10-28] MEDS: CEFAZOLIN 2 GM/100 ML FROZ.PIGGY IV (11:10)
[2020-10-28] MEDS: BUPIVACAINE 0.25% (PF) 8 ML, fentaNYL 100 MCG INJ (11:33)
[2020-10-28] MEDS: SODIUM CHLORIDE 0.9% 1,000 ML, GENTAMICIN 80 MG IRR (11:34)
[2020-10-28] MEDS: VANCOMYCIN 1,000 MG VIAL 1000 MG TOP (11:34)
[2020-10-28] MEDS: THROMBIN (RECOMBINANT) 5,000 UNIT VIAL 5000 UNIT TOP (11:34)
--- NOTE | 2020-10-28 12:25 | PM.OP.1 ---
Operative Date/Time/Diagnoses Date of procedure: 10/28/20 Time of procedure: 12:25 Pre-op diagnosis: Lumbar stenosis with radiculopathy History of lumbar fusion Post-op diagnosis: same Procedure & Clinicians Procedure: L5-S1 screw removal on right L4-5 laminectomy Use of microscope Placement of epidural catheter Same procedure as scheduled: Yes Indications: [age] year old male with intractable pain from stenosis. They had failed conservative management and requested operative intervention. Risks and benefits of surgery were discussed and appropriate consents were obtained. Surgeon: Edward Mares Executive Chairman: Yenifer Maurice Anesthesia Type: General Operative Notes Findings: None Closure Type: primary Specimen(s): none sent Prosthetic devices, grafts, tissues, transplants, or devices: Removed NuVasive MAS Reline screws at L5S1 Estimated Blood Loss (mL): 10 Procedure in detail: Patient was brought to the operating room and intubated on the table. A time-out was performed. There were rolled over the well-padded prone position on the Joao table. The back was prepped and draped in standard sterile fashion. Preoperative antibiotics were given. Using fluoroscopy, a 3 cm incision was made to the well marked right of the midline at the L4-S1 level using his previous incision. We used Bovie to come down to and split the fascia. We exposed the old screws using fluoroscopy. They were in the way of our new laminectomy at L4-5 and we removed the L5-S1 screws on the right without any complications. We then used the NuVasive MaXcess dilators with fluoroscopy to expose along the right-sided lamina at L4-5 and then opened our retractors. The soft tissue was cleared off with Bovie, a marker was placed, an x-ray was taken to confirm positioning. We then brought in the microscope. A combination of high-speed bur and Kerrison were used to perform a right-sided hemilaminotomy and hemifacetectomy. The majority of his stenosis was coming from his hypertrophic right-sided facet and all this hypertrophic material was removed. At the end, we could easily sweep are ball probe cephalad and caudally with a widely decompressed traversing L5 root, and out through the neural foramen with a widely decompressed exiting L4 root. Once everything was adequately decompressed, the wound was copiously irrigated. An epidural catheter was filled with 100 mcg of fentanyl and 8 mL of 0.25% Marcaine. The dura was carefully depressed under the laminotomy site and the catheter was advanced 6 cm cephalad. The retractor was removed and the fascia was closed. The epidural catheter was then injected without resistance and removed. Vancomycin powder was placed in the wound. Superficial and skin were closed. Sterile dressing was placed. The patient was then rolled over, transferred to the stretcher, and brought to recovery room without complications. Complications: none Post-operative Condition: stable Disposition: PACU Plan for aftercare: Outpatient. Activity limited for the 1st 2 weeks and then may progress as tolerated after sutures are removed.
[2020-10-28] MEDS: OXYCODONE/ACETAMINOPHEN 5/325 TABLET 1 TAB PO (13:11)
== END 2020-10-28 14:10 | disposition home or self-care (01) ==
PROVIDERS: PCP Family Medicine; Referring Provider Family Medicine; Visit Provider Orthopaedic Surgery
PROC: (CPT 63047; principal; 2020-10-28 11:45)
DX: M48.062 Spinal stenosis, lumbar region with neurogenic claudication (principal); S39.012D Strain of muscle, fascia and tendon of lower back, subsequent encounter; M51.16 Intervertebral disc disorders with radiculopathy, lumbar region; Z98.1 Arthrodesis status; Z47.2 Encounter for removal of internal fixation device
CPT/HCPCS: 63047; 20680; 72100; 76000; 82962; J0690; J1100; J2250; J2405; J2704; J3010

== ENCOUNTER → 2021-01-13 11:35 | Outpatient (CLI) | payer MEDICARE, BC, SELFPAY ==
[2019-11-06 14:47] VITALS: BMI 25.7
--- NOTE | 2021-01-13 11:40 | DI.RAD.S_ITS ---
PROCEDURE: XR FOOT LT 2V INDICATIONS: ARTHRITIS BILATERAL FOOT PAIN TECHNIQUE: 3 views of the foot were acquired. COMPARISON: None. FINDINGS: Bones: No fractures or dislocations. No suspicious bony lesions. Mild 1st MCP joint osteoarthritis. Erosive changes noted in the 1st and 5th DIP joints . Soft tissues: No tibiotalar joint effusion. Achilles tendon appears normal. IMPRESSION: Erosive changes involving the 1st and 5th DIP joints paddle with inflammatory arthritis. Dictated by: Glo Blackwell MD, PhD on 01/13/2021 at 17:52 Approved by: Glo Blackwell MD, PhD on 01/13/2021 at 17:54
--- NOTE | 2021-01-13 11:40 | DI.RAD.S_ITS ---
PROCEDURE: XR FOOT RT 2V INDICATIONS: ARTHRITIS BILATERAL FOOT PAIN TECHNIQUE: 3 views of the foot were acquired. COMPARISON: None. FINDINGS: Bones: No fractures or dislocations. No suspicious bony lesions. Mild osteoarthritic changes noted in the 1st MCP joint. Erosive changes noted in the 1st DIP joint. Small calcaneal bone spur. Soft tissues: No tibiotalar joint effusion. Achilles tendon appears normal. IMPRESSION: Erosive changes in the 1st DIP joint compatible with inflammatory arthritis. Dictated by: Glo Blackwell MD, PhD on 01/13/2021 at 17:54 Approved by: Glo Blackwell MD, PhD on 01/13/2021 at 17:55
== END ==
PROVIDERS: PCP Family Medicine; Referring Provider Internal Medicine Rheumatology; Visit Provider Internal Medicine Rheumatology
DX: L40.50 Arthropathic psoriasis, unspecified (principal); M19.072 Primary osteoarthritis, left ankle and foot
CPT/HCPCS: 73620

== ENCOUNTER → 2021-04-21 12:03 | Outpatient (CLI) | payer MEDICARE, BC, SELFPAY ==
[2019-11-06 14:47] VITALS: BMI 25.7
--- NOTE | 2021-04-21 | DI.CT.S_ITS ---
PROCEDURE: CT LUMBAR SPINE WO CON INDICATIONS: spinal stenosis, lumbar region TECHNIQUE: Noncontrast 3 mm thick sections acquired from the T12 level to the sacrum. Sagittal and coronal reformats were constructed. For radiation dose reduction, the following was used: automated exposure control. COMPARISON: [facility], MR, MR LUMBAR SPINE WITH/WITHOUT CONTRAST, 12/29/2020, 10:29. [facility], CT, CT LUMBAR SPINE WO CON, 05/07/2020, 9:57. [facility], MR, MR LUMBAR SPINE WITH/WITHOUT CONTRAST, 09/22/2020, 14:09. [facility] [place], CR, XR LUMBAR SPINE 2 OR 3 VIEWS, 04/07/2021, 11:32. FINDINGS: Image quality: Excellent. Bones: No acute vertebral body compression fractures. No suspicious lytic or blastic bony lesions. No pars defects. Xzpc-[id number]-pjrkfyhl dextroconvex lumbar scoliosis is seen. No focal AP alignment abnormality is seen. T11-T12: Mild loss of disc height is seen. Bridging endplate osteophytes are seen. No significant neural foraminal or central canal narrowing can be seen. T12-L1: Normal. L1-L2: Within normal limits. L2-L3: The disc height is well preserved. Mild generalized disc bulge is seen. Mild bilateral neural foraminal narrowing is seen. No significant central canal narrowing is seen. L3-L4: The disc height is well preserved. Moderate disc bulge is seen, which is eccentric to the right. Mild to moderate facet hypertrophy is seen. Eluq-ly-eydbanns bilateral neural foraminal narrowing can be seen. Minimal to mild central canal narrowing is seen. L4-L5: At least moderate loss of disc height and disc signal can be seen on the left side. Vacuum disc phenomenon is seen at this level. Endplate irregularity and sclerosis can be seen. Posteriorly projected endplate osteophytes are seen. At least moderate disc bulge is seen at this level. There is at least moderate bilateral neural foraminal narrowing seen, right worse than left. Right hemilaminectomy change is seen at this level. No significant central canal narrowing is seen. L5-S1: Postoperative changes seen at this level, with left-sided pedicle screws at L5 and S1. Prior screw tracks can be seen on the right. There is a disc spacer seen. No findings of hardware failure or hardware loosening are seen. Mild loss of disc height is seen. Posteriorly projected endplate osteophytes are seen. There is been removal of portions of the posterior elements on the right side. At least moderate facet hypertrophy is seen. There is moderate bilateral neural foraminal narrowing seen. No significant central canal narrowing is seen. Soft tissues: No retroperitoneal masses or hematomas. Visualized aorta is normal in caliber. Atherosclerotic calcification is noted. IMPRESSION: Unremarkable L5-S1 postoperative hardware. Multiple levels of degenerative change are seen, which are worst inferiorly and are similar to the prior outside MRI examination. Zfka-[id number]-[id number] dextroconvex scoliosis. Dictated by: Gopal Denis M.D. on 04/21/2021 at 13:51 Approved by: Gopal Denis M.D. on 04/21/2021 at 13:55
== END ==
PROVIDERS: Referring Provider Orthopaedic Surgery Orthopaedic Surgery of the Spine; Visit Provider Orthopaedic Surgery Orthopaedic Surgery of the Spine
DX: M48.061 Spinal stenosis, lumbar region without neurogenic claudication (principal); M47.816 Spondylosis without myelopathy or radiculopathy, lumbar region; M47.817 Spondylosis without myelopathy or radiculopathy, lumbosacral region; M41.86 Other forms of scoliosis, lumbar region
CPT/HCPCS: 72131

== ENCOUNTER 2021-04-22 07:14 | Inpatient (IN) | payer MEDICARE, BC, SELFPAY ==
[2019-11-06 14:47] VITALS: BMI 25.7
[2021-04-17 08:33] VITALS: BMI 27.3
[2021-04-22] VITALS (19 sets, daily range): BP systolic 100–155; BP diastolic 48–80; PULSE 49–94; RESP 10–18; TEMP 36.2–37.3; O2SAT 92–100; BMI 26.6
--- NOTE | 2021-04-22 | DI.RAD.S_ITS ---
PROCEDURE: XR LUMBAR SPINE 2-3V INDICATIONS: L4-S1 TLIF TECHNIQUE: 3 nondiagnostic intraoperative fluoroscopic views of the lumbar spine. COMPARISON: [facility], PEDRO, XR LUMBAR SPINE 2-3V, 10/28/2020, 11:40. FINDINGS: 3 nondiagnostic intraoperative fluoroscopic views of the lumbar spine are provided. These images demonstrate postsurgical changes of L4-S1 instrumented fixation by means of bilateral rods and pedicle screws along with interbody devices at L4-L5 and L5-S1. IMPRESSION: Intraoperative fluoroscopic images demonstrating L4-S1 posterior fixation. Dictated by: Dmitri Marte M.D. on 04/22/2021 at 12:59 Approved by: Dmitri Marte M.D. on 04/22/2021 at 13:00
[2021-04-22] MEDS: ACETAMINOPHEN 325 MG TABLET 975 MG PO (07:54)
[2021-04-22] MEDS: PREGABALIN 75 MG CAPSULE PO (07:55)
[2021-04-22] MEDS: LACTATED RINGERS 1,000 ML 42 ML IV ×2 (08:18→11:18)
--- NOTE | 2021-04-22 08:31 | PM.PREOP ---
Pre-operative Note COVID-19 COVID-19 status: Negative Result date/Date tested (Pos, Neg/Pending): 04/20/21 Interval Note History & Physical reviewed/Exam performed by Physician: Yes Changes to H&P: No
[2021-04-22] MEDS: CEFAZOLIN 1 GM VIAL 2 GM IV ×2 (09:00→18:01)
[2021-04-22] MEDS: BUPIVACAINE LIPOSOME 266 MG/20 ML VIAL INJ (10:14)
[2021-04-22] MEDS: BUPIVACAINE 0.5% (PF) VIAL 30 ML INJ (10:15)
--- NOTE | 2021-04-22 12:57 | P.OP_ITS ---
Operative Date/Time/Diagnoses Date of procedure: 04/22/21 Time of procedure: 09:00 Pre-op diagnosis: 1. Hx of L5-S1 PSF with pseudoarthrosis 2. L4-5, L5-S1 spinal stenosis with radiculopathy 3. L4-5, L5-S1 spondylosis with radiculopathy Post-op diagnosis: same Procedure & Clinicians Procedure: 1. L4-5 posterolateral and posterior interbody fusion 2. L4-5 posterior interbody cage placement 3. L5-S1 posterior non-segmental instrumentation removal 4. L5-S1 revision laminectomy with exploration of fusion 5. L4-5, L5-S1 posterior segmental instrumentation with pedicle screw placement 6. L5-S1 posterolatearl fusion 7. [place] of bone marrow from iliac crest through a separate incision 8. Utilization of microsurgical technique and operating microscope 9. Utilization of robotic Navigation system for surgery Same procedure as scheduled: Yes Indications: Patient has been having chronic back pain and worsening lumbar radiculopathy. Patient had prior fusion surgery with hardware removal secondary to radiculopathy. Patient has been having worsening back pain as well as leg pain since the revision surgery. CT shows pseudoarthrosis and hardware loosening at L5-S1 level. Patient failed multiple conservative management with worsening pain weakness and numbness in her lower extremity. Patient has been having difficulty performing activity of daily living. After discussing risks benefits of treatment options, patient elected proceed with surgery. Surgeon: Patricia Kennedy Certified Professional Coder: Tomas Roman Click Yes if Unassisted: No Anesthesia Type: General Operative Notes Closure Type: primary Specimen(s): none sent Prosthetic devices, grafts, tissues, transplants, or devices: Globus CREO MIS screws, Rise cage Applied: catheter Estimated Blood Loss (mL): 50 Blood products transfused: none Procedure in detail: Patient was seen in the preoperative area. Risks and benefits of the surgery was discussed with the patient. Informed consent was obtained from the patient and placed in the chart. Surgical site was marked. Patient was taken to the operative room. General anesthesia was administered. Prophylactic antibiotic was given to the patient less than 30 min before the incision was made. Patient was placed into a prone position on the Joao table. Patient's back was then prepped and draped in the sterile fashion. Time- out was performed at this time. After patient was prepped and draped, patient's PSIS was palpated and marked bilaterally. Small 1 cm incision was made over the PSIS for placement of the reference probes. Two trocar was placed into the PSIS 1 on each side. The reference probe was attached to the trocar of the reference apparatus. At this time the C-arm imaging was used to confirm AP and lateral of L4, L5, and S1 vertebrae and merged the C-arm imaging using the [employer] robotic navigation system with the CT of the lumbar spine. After successful merging was completed and confirmed, skin marker was used to dari out the skin incision using the [employer] robotic arm. Bilateral incision was made at this time. Using patient's previous scar incision was made over the L4, L5-S1 interval on the left side. Fascia was incised in line with skin incision. Patient's pre viously placed hardware over the L5-S1 level was identified by dissecting down to the level the hardware using a Bovie and a Cain. The locking caps which was removed using globus screwdriver. The locking cecile was then removed from the tulips of the pedicle screws using a Radha. The pedicle screws were then removed using the screwdriver. The screws were found to have poor purchase due to hardware loosening and indicating pseudoarthrosis at L5-S1 level. Pre templated trajectory was used and guided using the [employer] robotic navigation system for left L4, L5 and S1 pedicle screws and right L4 and S1 pedicle screws placement. Right L5 screw was not templated due to the previous placed screw that was irritating the L5 nerve root due to medial placement. The right L5 screw was purposely left arm placed due to difficulty to place a screw in a new trajectory not compromising any neurologic structures. The difficulty was due to the previously placed screw trajectory. This was done by using the robotic arm to guide the high-speed bur to make a cortical entry point. Next a drill was placed also using the robotic arm and guided using the navigation system drilling partially through bilateral L4, L5, S1 pedicles except right L5 pedicle. Next L4, L5, S1 pedicle screws it was pre templated and measured was placed onto the power pedicab driver and inserted into the pedicles bilaterally. After all 5 screws were placed C-arm imaging was taken of both AP and lateral to confirm the placement. Excellent placement of the screws were confirmed and a matched precisely with the pre planned screw placement using the navigation system. Screws were all tested using neuro monitoring system and they were all above 20 milliamps of threshold indicating no cortical breach of the pedicle screws. MARs retractor was inserted using TBS guidence. Globus MARS retractors was placed inside the incision and docked onto the L4 lamina. Using microsurgical technique and operating microscope, a L4 laminectomy and L4-5 facetectomy was performed using a Kerrison rongeur. Patient was found have severe lateral recess and neural foramen stenosis which was fully decompressed after the laminectomy facetectomy. More than 75% of the facets were removed during the process of decompression rendering L4-5 level grossly unstable and required a fusion procedure at the same time. The disc space at L4-5 was identified, and a total diskectomy was performed at L4-5 level. The endplates were decorticated using a rasp and shaver. The total diskectomy and decortication was performed at L4-5 level in order to to accomplish a L4-5 fusion. The local bone from the laminectomy and facetectomy was saved for local bone grafting. After the total diskectomy and decortication was completed, Tr ifecta bone graft material was combined with local bone that was harvested earlier. At this time, a separate skin is incision was made over the iliac crest. A Jamshidi needle was inserted into the iliac crest through a separate skin incision. 5 cc of bone marrow aspiration was obtained through the separate skin incision using a Jamshidi needle from the iliac crest. The bone marrow aspiration was combined with local bone and the Trifecta bone grafting material. The bone grafting material was placed into the L4-5 interbody space along with a expandable cage. The cage was expanded to its maximum height using the torque limiting screwdriver. The disc preparation as well as the cage insertion were also performed under navigation guidance. After the cage was placed, AP and lateral C-arm imaging was taken to confirm placement of the cage and excellent position was confirmed. The fusion mass on the right side of L5-S1 was exposed by performing a right- sided hemilaminectomy at L5-S1 level. The hemilaminectomy was performed using the Kerrison rongeur to undercut the lamina as well removing additional epidural scar tissue for purpose of decompressing the epidural space. The fusion mass was explored and was found have visible motion indicating pseudoarthrosis. Globus MARS retractor was inserted and docked onto the L4-5 L5-S1 posterolateral gutter. Using the power drill, posterior-lateral decortication was performed at L4-5 L5-S1 level until bleeding cortical bone was identified. The remaining bone grafting material was placed into the L4-5 L5-S1 posterior lateral gutter he order to accomplish posterolateral fusion at the L4-5 L5-S1 level. At this time the tulips were attached to the L4-L5 and S1 pedicle screw shanks. This was done in L4-L5 S1 pedicles bilaterally except the right S1 pedicle which was left un instrumented on purpose. After measuring the length of the rods, they were inserted into the tulips of the pedicle screws and locked in place using locking caps and torque limiting screwdriver bilaterally. Total 5 caps and 2 titanium rods was used in order to complete the posterior instrumentation construct. After all the hardware was placed, and confirmed with AP and lateral C-arm imaging, the wound was then irrigated with sterile normal saline and packed with Ray-Gloria gauze for 3 min to accomplish hemostasis. After the gauze was removed the deep fascia was closed with #1 Vicryl suture. The subcutaneous layer was closed with 2-0 Vicryl. The skin was closed with skin oneil. Patient tolerated the procedure well. There were no complications. Neuro monitoring system was used to monitor patient's neurologic status throughout entire procedure. There was no disturbance of the neural monitoring signals throughout the case. Complications: none Post-operative Condition: stable Disposition: PACU Plan for aftercare: Admit to inpatient hospital
[2021-04-22] MEDS: HYDROMORPHONE 2 MG INJ IV ×2 (14:30→14:40)
[2021-04-22] MEDS: SODIUM CHLORIDE 0.9% 1,000 ML 100 ML IV (16:23)
[2021-04-22] MEDS: ACETAMINOPHEN 325 MG TABLET 650 MG PO (18:00)
[2021-04-22] MEDS: hydrOXYzine pamoate 25 MG CAPSULE PO (18:01)
--- NOTE | 2021-04-22 18:11 | PC.NURSE ---
Addendum entered by Kate Vizcarra R.N. 04/22/21 21:46: lt eye improving. pt c/o nausea, administered zofran. pain controlled with oxycodone, vistaril and tylenol. kennedy patent. Original Note: pt been having Lt. eye irritation ever since he was in the PACU. Pt reports it feels like there is something in his eye. I inspected his eye, nothing was seen. saw in hallway and notified him. He said he will let Dr. Kennedy know.
[2021-04-22] MEDS: ATORVASTATIN 20 MG TABLET 10 MG PO (21:38)
[2021-04-22] MEDS: DOCUSATE 100 MG CAPSULE PO (21:38)
[2021-04-22] MEDS: ONDANSETRON 4 MG/2 ML INJ IV (21:38)
[2021-04-22] MEDS: OXYCODONE IR 5 MG TABLET 10 MG PO (21:38)
[2021-04-22] MEDS: SENNOSIDES 8.6 MG TABLET 17.2 MG PO (21:38)
[2021-04-23] MEDS: OXYCODONE IR 5 MG TABLET 10 MG PO (00:35)
[2021-04-23 00:40] VITALS: PULSE 58
[2021-04-23] MEDS: CEFAZOLIN 1 GM VIAL 2 GM IV (02:15)
[2021-04-23] MEDS: SODIUM CHLORIDE 0.9% 1,000 ML 100 ML IV (02:46)
[2021-04-23] MEDS: hydrOXYzine pamoate 25 MG CAPSULE PO ×2 (02:58→09:16)
--- NOTE | 2021-04-23 03:18 | PC.NURSE ---
Patient is alert and oriented. Breath sounds CTA with RA sat of 96%. HRR but bradycardic with rate in upper 50's to low 60's. Denied nausea at time of assessment but did become slightly nauseated following administration of antibiotic so medicated with Vistaril. BT present but denied passing flatus as yet. Indwelling catheter is patent; urine is clear gloria. Is able to turn himself in bed. Gait not assessed as has not yet been out of bed. Back dressing is CDI. Did complain of 7/10 pain earlier and was medicated with Oxycodone. CMS intact bilaterally. Wearing bilateral foot SCD's. Fall risk score is low. Does complain of left eye pain and blurred vision; evening RN reports anesthesiologist is aware and was up to see patient earlier. Inner lower lid is reddened and patient states pain is sharp; is using normal saline to flush eye and wet washcloth over eye to help reduce discomfort.
[2021-04-23 03:49] VITALS: BP 123/58; PULSE 55; RESP 16; TEMP 37.1; O2SAT 97
[2021-04-23] MEDS: PANTOPRAZOLE DR 20 MG TABLET PO (06:24)
[2021-04-23] MEDS: ACETAMINOPHEN 325 MG TABLET 650 MG PO (06:27)
[2021-04-23 07:53] VITALS: BP 135/66; PULSE 60; RESP 17; TEMP 37; O2SAT 98
--- NOTE | 2021-04-23 08:37 | PM.PNPO.1 ---
Subjective Subjective Date Patient Seen: 04/23/21 Time Patient Seen: 08:37 Interval history: Patient states he is doing well overall and is in mild discomfort at rest. At this time he rates his pain a 4/10 in intensity. He denies fever, chills, nausea, chest pain, or shortness of breath. He explains that he has slight blurred vision in his left eye with mild pain that is alleviated when his eyelid is closed. He reports good sensation throughout the bilateral lower extremities. Exam Vital Signs (past 8 hours): - 04/23/21 00:40 04/23/21 03:49 Temperature 98.7 F Pulse Rate 58 L 55 L Respiratory Rate 16 Blood Pressure 123/58 L Pulse Oximetry 97 Oxygen Delivery Method Room Air Oxygen Flow Rate 0 Narrative Exam Narrative: 65-year-old male postop day 1. Patient is resting comfortably in bed, is in no acute distress, is alert and oriented x3. Skin is warm and dry, and the skin surrounding the incision site is free of erythema, warmth, induration, or discharge. Dressing over the incision site is clean, dry, and intact. Good sensation appreciated throughout the bilateral lower extremities to light touch. Ankle dorsiflexion, plantar flexion, eversion, inversion performed bilaterally without difficulty or discomfort. Calves are soft and nontender, negative Homans sign. DP pulses palpated bilaterally. Conjunctiva injection in the left eye. No other signs of DVT appreciated. Const General: cooperative, healthy appearing and comfortable Resp Effort & Inspection: normal respiratory effort and able to speak in complete sentences Skin General: no rashes or lesions noted PFSH Medical History Arthritis Colonic polyp GERD (gastroesophageal reflux disease) HLD (hyperlipidemia) Psoriasis Psoriatic arthritis Sciatica Surgical History History of lumbar spinal fusion (11/06/19) Hx of colonoscopy Hx of laminectomy (10/28/20) Social History household members: spouse Smoking Status: Former smoker alcohol intake: current Assessment & Plan Post-op Postoperative Procedures: Procedures Operation Date: 04/22/21 08:45 Actual Procedure Side Surgeon p L4-5 TLIF,L5-S1 HWR,exploration of fusion,repeat laminectomy,reinsertion of hardware,L4-S1 PSF w/instrumentation, ROBOT Patricia Kennedy MD Postoperative day: 1 Postoperative status: doing well Postoperative plan: ambulate Postoperative plan narrative: Patient is to work on ambulation with the assistance of a front wheeled walker with physical therapy. He is also to work on stair Grainger with physical therapy today. Current pain management regimen is to be continued as it is adequately controlled the patient's pain level. Plan for discharge likely home today or tomorrow pending successful work with PT.
[2021-04-23] MEDS: DOCUSATE 100 MG CAPSULE PO (09:16)
--- NOTE | 2021-04-23 09:46 | PM.DS.1 ---
History of Present Illness History of Present Illness Date Patient Seen: 04/23/21 Time Patient Seen: 09:46 Chief complaint: TLIF Narrative: Refer to previous HPI. Discharge Providers Provider Date of admission: 04/22/21 07:14 Discharge Date: 04/23/21 Consults: 04/22/21 15:48 Consult to Occupational Therapy Evaluate & Treat Comment: Physician Instructions: Evaluate and treat Consult to Physical Therapy Evaluate & Treat Comment: Physician Instructions: Evaluate and Treat Discharge provider: Tomas Roman PA-C Summary Hospital Course Discharge Diagnosis: History of L5-S1 PSF with pseudo arthritis L4-5, L5-S1 spinal stenosis with radiculopathy L4-5, L5-S1 spondylosis with radiculopathy Status post L4-5 posterolateral and posterior interbody fusion 2. L4-5 posterior interbody cage placement 3. L5-S1 posterior non-segmental instrumentation removal 4. L5-S1 revision laminectomy with exploration of fusion 5. L4-5, L5-S1 posterior segmental instrumentation with pedicle screw placement 6. L5-S1 posterolatearl fusion 7. [place] of bone marrow from iliac crest through a separate incision 8. Utilization of microsurgical technique and operating microscope 9. Utilization of robotic Navigation system for surgery Hospital Course: Patient was admitted to the hospital following the above-listed procedure for the above-listed diagnosis. Following the procedure the patient has been convalescing appropriately in his pain has been managed with his current pain management regimen. Throughout the course of his time in the hospital the patient has denied fever, chills, nausea, chest pain, shortness of breath, or urinary retention. He has remained weight-bearing as tolerated with the assistance of a front wheeled walker. Patient has successfully worked on ambulation with the assistance of a front wheeled walker with physical therapy along with stair Whitfield. He has avoid bending, twisting, or lifting. Status at Discharge Cognitive/behavioral status at discharge: oriented Functional status at discharge: uses cane/walker Overall status at discharge: patient is progressing back to baseline Exam Vital Signs (past 8 hours): - 04/23/21 03:49 04/23/21 07:53 Temperature 98.7 F 98.6 F Pulse Rate 55 L 60 Respiratory Rate 16 17 Blood Pressure 123/58 L 135/66 Pulse Oximetry 97 98 Oxygen Delivery Method Room Air Oxygen Flow Rate 0 Narrative Exam Narrative: 65-year-old male postop day 1. Patient is resting comfortably in bed, is in no acute distress, is alert and oriented x3. Skin is warm and dry, and the skin surrounding the incision site is free of erythema, warmth, induration, or discharge. Dressing over the incision site is clean, dry, and intact. Good sensation appreciated throughout the bilateral lower extremities to light touch. Ankle dorsiflexion, plantar flexion, eversion, inversion performed bilaterally without difficulty or discomfort. Calves are soft and nontender, negative Homans sign. DP pulses palpated bilaterally. Conjunctiva injection in the left eye. No other signs of DVT appreciated. Const General: cooperative, healthy appearing and comfortable Resp Effort & Inspection: normal respiratory effort and able to speak in complete sentences Skin General: no rashes or lesions noted [facility] Medical History Arthritis Colonic polyp GERD (gastroesophageal reflux disease) HLD (hyperlipidemia) Psoriasis Psoriatic arthritis Sciatica Surgical History History of lumbar spinal fusion (11/06/19) Hx of colonoscopy Hx of laminectomy (10/28/20) Social History household members: spouse Smoking Status: Former smoker alcohol intake: current Discharge Assessment & Plan Assessment and Plan Assessment: Patient is doing well and is stable. Plan of Treatment: First postoperative visit is scheduled for 2 weeks following discharge from the hospital. Patient is to remain weight-bearing as tolerated with the assistance of a front wheeled walker. Avoid bending, twisting, or lifting. Current pain management regimen is to be continued as it is adequately controlled the patient's pain level. Dressing over the incision site can be changed as needed if it becomes damaged or soiled. Patient is to contact clinic with any concerns or questions. Any signs of increased redness, swelling, warmth, pain, or discharge from around the incision site should be reported to the clinic. Discharge Plan Discharge Plan Patient Disposition: Home Provider Discharge Comment: Patient cleared for discharge pending PT clearance and ability to void. Discharge orders & Medications Prescriptions: New acetaminophen 325 mg Tablet 650 mg PO Q6HR PRN (Reason: Pain, Mild (1-3)) Qty: 90 RF: 0 oxycodone 5 mg Tablet 10 mg PO Q3HR PRN (Reason: Pain, Severe (7-10)) Qty: 42 RF: 0 hydroxyzine pamoate 25 mg Capsule 25 mg PO Q4HR PRN (Reason: Nausea And Vomiting) Qty: 40 RF: 0 Continued aspirin 81 mg Tablet,Delayed Release (Dr/Ec) 81 mg PO DAILY RF: 0 omeprazole 10 mg Capsule,Delayed Release(Dr/Ec) 10 mg PO DAILY RF: 0 simvastatin 20 mg Tablet 20 mg PO BEDTIME RF: 0 celecoxib [Celebrex] 200 mg Capsule 200 mg PO BID PRN (Reason: pain) Qty: 60 RF: 0 Diet/Activity/Treatments Diet: Diet as Tolerated and Regular Activity: Weight-bearing as tolerated with the assistance of a front wheeled walker. Avoid bending, twisting, or lifting. Skin/Wound/Dressing Care Report to your healthcare provider any signs of infection, such as:: chills, fever, night sweats, increased pain, unusual drainage and unusual redness Dressing: Dressing over the incision site can be changed as needed if it becomes damaged or soiled. Other wound treatment: Avoid placing topical ointments over the incision site or soaking the incision site. Visit Report/Discharge Packet Instructions: DI for Heart Failure, DI for Prescription Opioid Use, DI for Transforaminal Lumbar Interbody Fusion Stand Alone Forms: Surgery Discharge
--- NOTE | 2021-04-23 10:05 | OT.IP.EVAL ---
Current Diagnoses Spinal stenosis, lumbar region without neurogenic claudication (04/22/21) Surgery Performed Operation Date: 04/22/21 08:45 Actual Procedures p L4-5 TLIF,L5-S1 HWR,exploration of fusion,repeat laminectomy,reinsertion of hardware,L4-S1 PSF w/instrumentation, ROBOT - Patricia Kennedy MD Past Medical History (Last Reviewed 04/23/21 @ 09:49 by Tomas Roman PA-C) Arthritis Colonic polyp GERD (gastroesophageal reflux disease) History of lumbar spinal fusion (11/06/19) HLD (hyperlipidemia) Hx of colonoscopy Hx of laminectomy (10/28/20) Psoriasis Psoriatic arthritis Sciatica Surgical History (Last Reviewed 04/23/21 @ 09:49 by Tomas Roman PA-C) History of lumbar spinal fusion (11/06/19) Hx of colonoscopy Hx of laminectomy (10/28/20) Occupational Therapy Inpatient Evaluation/Re-Eval M1 PT/OT-IP Prior Functional Status Start: 04/23/21 12:16 Freq: NEEDED Status: Active Protocol: Document 04/23/21 12:38 [facility] (Rec: 04/23/21 12:57 [facility] [id number]) Medical Review Prior Functional Status Medical History Reviewed Yes Communication Independent Mobility and Gait Pt states that walking was very painful after 100ft. Pt not did ambulate with a device . Activities of Daily Living and IADL's Pt states able to do ADL's but painful for IADl needs due to his back pain. Social History Household Members spouse Living Arrangements House Number of Floors (Floors) One Floor Number of Stairs To Enter/Railing? 2 steps with right rail going up. Home Environment Standard Height Toilet,Walk in Shower,Tub/Shower Home Equipment Hand Held Shower,Grab Bars In Shower Additional Social History Comment Pt states no longer has his FWW from last surgery, but plans to get one in addition to a shower chair. M2 OT-IP Current Condition Start: 04/23/21 12:37 Freq: Status: Active Protocol: Document 04/23/21 12:38 [facility] (Rec: 04/23/21 12:57 [facility] [id number]) Occupational Therapy Current Condition Current Condition Evaluation Date 04/23/21 Treatment Diagnosis s/p L4-5 TLIF, L4-S1 PSF with instrumentation Diagnosis Onset Date 04/22/21 Post Operative Precautions Lumbar Precautions Log Roll,No Twisting,Limit Bending,Lifting Restriction of 10 lbs,Gait Belt above Incisional Area M3 OT- IP Subjective and Pain Start: 04/23/21 12:37 Freq: Status: Active Protocol: Document 04/23/21 12:38 [facility] (Rec: 04/23/21 12:57 [facility] [id number]) OT- Subjective Occupational Therapy Visit Type Type Initial Evaluation Visit Start Time 09:10 Visit Stop Time 10:05 Total Visit Minutes 55 Occupational Therapy Visit Comments Patient Comments Pt agreed to get up for OT eval. Patient/Caregiver Goals To go home. OT Pain Assessment Pain When Pain Assessed During Mobility Pain Present Pain Present Pain Reported Location Left Eye Intensity 4 Scale Used Numeric (0 - 10) M4 OT- IP ADL's Start: 04/23/21 12:37 Freq: Status: Active Protocol: Document 04/23/21 12:38 [facility] (Rec: 04/23/21 12:57 [facility] [id number]) OT [id number] General Evaluation Self-Feeding Ability Independent OT ADL-Grooming General Evaluation Grooming Ability Independent OT ADL-Oral Care General Eval Oral Care Ability Standby Assistance Comments Oral Care Comments Vc to spit into a cup to best follow his back precautions. OT ADL-Dressing General Eval Lower Body Dressing Ability Standby Assistance,Maximum Assistance Comments OT Dressing Comments Prior pt did not use any adaptive equipment and now willing to use LB dressing equipment in order to best follow his back precautions. Able to educate on use of enrobing machine corder and sock aid to help increase his independence for LB dressing needs. Pt states his will also be available to assist. OT ADL-Toileting Comments OT Toileting Comments Educated to pt best to stand to wipe and use of wet wipes are helpful. Also showed pt example of toilet paper aid to increase ease for hygiene, otherwise if needed may have to have his assist. OT ADL-Bathing Comments OT Bathing Comments Not performed. M5 OT- IP IADL's Start: 04/23/21 12:37 Freq: Status: Active Protocol: Document 04/23/21 12:38 [facility] (Rec: 04/23/21 12:57 [facility] [id number]) OT-Instrumental Activities of Daily Living Home Safety Awareness Awareness of Need for Assistance at Home Good Awareness Ability to Problem Solve Emergency Able to Problem Solve Situations Home Safety Comments Pt's to provide supervision and assist as needed. M6 OT- IP Functional Cognition Start: 04/23/21 12:37 Freq: Status: Active Protocol: Document 04/23/21 12:38 [facility] (Rec: 04/23/21 12:57 [facility] [id number]) Cognitive Factors Limiting Selfcare Function Cognitive Ability Level of Alertness Alert Patient Orientation Name,Age,Birthday,Month,Date, Year,Day of Week,Place, Situation Attention Span Ability Capable of Focused Attention, Capable of Sustained Attention Ability to Follow Commands Able to Follow Multi-Step Commands Memory Description No Deficits Noted Safety Awareness Underestimates Need for Assistance Problem Solving Ability No deficits Noted Cognitive Comments Cognitive Assessment Comments At this time on Ot eval , pt appears intact for cognitive needs to recall and incorporate back precautions for ADl and mobility needs. Pt just needing initial vc for safety to push up from the bed to come to stand. OT- Vision and Hearing OT- Hearing Assessment OT- Hearing Assessment WFL OT- Vision Assessment Visual Acuity Glasses For Reading Vision Assessment Comments Pt states left eye a little blurry but getting better. Per pt was told that he may have rubbed his left eye during surgery. M7 OT- IP Mobility and Balance Start: 04/23/21 12:37 Freq: Status: Active Protocol: Document 04/23/21 12:38 [facility] (Rec: 04/23/21 12:57 [facility] [id number]) OT- Bed Mobility Assessment Supine to Sit Supine to Sit Assist Standby Assistance Sit to Supine Sit to Supine Assist Standby Assistance Scooting Scooting to Edge of Bed Standby Assistance Scooting Up and Down in Bed Standby Assistance OT-Transfer Assessment Sit to and From Stand Sit to and from Stand Standby Assistance Transfers Transfer Ability Standby Assistance Technique Transfer Destination Bed,Chair Devices Transfer Assistive Devices Gait Belt,Front Wheeled Walker Comments Mobility Comments SBA for all mobility needs M8 OT- IP Objective Assessments Start: 04/23/21 12:37 Freq: Status: Active Protocol: Document 04/23/21 12:38 [facility] (Rec: 04/23/21 12:57 [facility] [id number]) OT Gross Range of Motion Upper Extremity Range of Motion Assessment Within Functional Limits OT Strength Upper Extremity Strength Assessment Within Functional Limits M9 OT- IP Assessment and Plan Start: 04/23/21 12:37 Freq: Status: Active Protocol: Document 04/23/21 12:38 [facility] (Rec: 04/23/21 12:57 [facility] [id number]) OT Summary Assessment and Plan Potential Rehabilitation Potential Good Analytic Complexity at Evaluation Low Summary OT Impairments Pain,Balance,Functional Mobility,Dressing,Toileting, Bathing,Toilet Transfers, Shower Transfers Progress Towards Goals Progressing Toward Goals Assessment Summary Pt low complexity and main barriers are steps, cues for safety , and will benefit from his to prove at leat supervision and assist for ADL and IADl needs. Pt looking to go home today when medically stable. LB dressing equipment issued to the pt. Pt states to get a FWW and shower chair for home use. Goals Grooming Goal Independent Dressing Goal Independent Toileting Goal Independent Bathing Goal Independent Toilet Transfer Goal Independent Shower Transfer Goal Independent Patient/Caregiver Education Goal Demonstrate Post-Op Precautions,Caregiver Independent Assisting Patient Days to Meet Goals 3 Frequency of Treatment Frequency Of Treatment Once a Day Treatment Plan OT Treatment Plan ADL Training,Functional Mobility,Patient/Family Education,Discharge Planning Other Treatment Recommendations and Next Shower if pt still here. Treatment Focus Discharge Recommendations OT Discharge Recommendations Home with Assistance Home Equipment Needs FWW, shower chair Transportation Needs at Discharge Private Vehicle
--- NOTE | 2021-04-23 10:25 | PT.IIE ---
Current Diagnoses Spinal stenosis, lumbar region without neurogenic claudication (04/22/21) Surgery Performed Operation Date: 04/22/21 08:45 Actual Procedures p L4-5 TLIF,L5-S1 HWR,exploration of fusion,repeat laminectomy,reinsertion of hardware,L4-S1 PSF w/instrumentation, ROBOT - Patricia Kennedy MD Medical History (Last Reviewed 04/23/21 @ 09:49 by Tomas Roman PA-C) Arthritis Colonic polyp GERD (gastroesophageal reflux disease) HLD (hyperlipidemia) Psoriasis Psoriatic arthritis Sciatica Physical Therapy Inpatient Evaluation/Re-Eval M1 PT/OT-IP Prior Functional Status Start: 04/23/21 12:16 Freq: NEEDED Status: Active Protocol: Document 04/23/21 10:25 [facility] (Rec: 04/23/21 12:45 [facility] [id number]) Medical Review Prior Functional Status Medical History Reviewed Yes Communication able to make needs known Mobility and Gait pt stated that he is independent with all mobilities and ambulation without AD Social History Household Members spouse Living Arrangements House Number of Floors (Floors) One Floor Number of Stairs To Enter/Railing? 2 steps L rail to enter Home Environment High Toilet,Walk in Shower Home Equipment Hand Held Shower,Grab Bars Near Toilet,Grab Bars In Shower M2 PT-IP Current Condition Start: 04/23/21 12:16 Freq: NEEDED Status: Active Protocol: Document 04/23/21 10:25 [facility] (Rec: 04/23/21 12:45 [facility] [id number]) Physical Therapy Current Condition Current Condition Evaluation Date 04/23/21 Treatment Diagnosis s/p L4-5 fusion, L5S1 instrumentation/revision lami; difficulty in walking Onset Date 04/22/21 Precautions Lumbar Precautions Log Roll,No Twisting,Limit Bending,Lifting Restriction of 10 lbs,Gait Belt above Incisional Area M3 PT-IP Subjective Start: 04/23/21 12:16 Freq: NEEDED Status: Active Protocol: Document 04/23/21 10:25 [facility] (Rec: 04/23/21 12:45 [facility] [id number]) Subjective Physical Therapy Visit Type Type Initial Evaluation Visit Start Time 10:25 Visit Stop Time 10:50 Total Visit Minutes 25 Number of SHELF FILLER Visits 0 Physical Therapy Visit Comments Patient Comments pt is agreeable to do PT Therapy Pain Assessment Pain When Pain Assessed At Rest Pain Present Pain Present Pain Reported Location Back Intensity 4 Scale Used Numeric (0 - 10) Pain Management Techniques Distraction,Modification of Treatment,Re-positioning, Timing of Activity with Medications M4 PT-IP Mobility and Gait Start: 04/23/21 12:16 Freq: NEEDED Status: Active Protocol: Document 04/23/21 10:25 [facility] (Rec: 04/23/21 12:45 [facility] [id number]) PT-Bed Mobility Assessment Rolling Type of Rolling Log Rolling Level of Assist Standby Assistance Supine to Sit Supine to Sit Standby Assistance Sit to Supine Sit to Supine Standby Assistance PT-Transfer Assessment Sit to and From Stand Sit to and from Stand Standby Assistance,1 Person Assistance,Use of Upper Extremities Equipment Transfer Assistive Device Gait Belt,Front Wheeled Walker Orthotic/Prosthetic Devices or Brace: No Transfers Transfer Destination Chair Transfer Technique Stand Step Pivot Transfer Ability Level of Assist Standby Assistance Comments Mobility Comments reviewed back precautions and log roll with pt. pt able to recall. completed sit to stand from chair SBA and ambulated towards the bed ~ 12 ft using FWW SBA. completed sit<>supine log roll. SBA. agreed to ambulate in the hallway. ambulated without AD CGA ~ 150 ft. presents with unsteady gait and occasional increase posterior trunk lean towards the L requiring increase recovery time to repostion but without LOB. pt completed up /down steps using L rail SBA. pt ambulated back to his room without AD CGA. educated pt on safety. pt initially stated that he has a SPC at home. Assessed ambulation using SPC and pt completed SBA 50 ft requiring CGA towards end of ambulation. informed pt to use SPC for short distance ambulation but will need a FWW for long distance mobility . pt agreed. stated that he will borrow one from the [employer]. pt requested to use the toilet and ambulated to the toilet using FWW. pt was able to maintain standing SBA. ambulated out of the toilet towards the sink using FWW SBA and completed handwashing SBA . ambulated to the chair. left pt sitting on chair. call light and table placed within reach. PT passing by pt's room and spouse in room and has a question for PT. pt stated that spouse stated that they don't have a SPC at home. informed pt regarding either borrowing or purchasing one. pt and spouse understood. stated that they will purchase a SPC and will borrow a FWW at the [employer]. no other concerns afterwards. Gait Assessment Gait Gait Assistance Required: Standby Assistance,Contact Guard Assist,1 Person Assist Distance (Feet) 150 Able to Maintain Weight Bearing Status Yes During Gait Assistive Devices Assistive Device None,Gait Belt,Straight Cane, Front Wheeled Walker Orthotic/Prosthetic Devices or Brace: No Gait Deviations General Gait Pattern Antalgic,Decreased Stride Length,Decreased Feet Clearance,Lateral Trunk Lean, Step-to Gait Factors Limiting Gait Function Factors Limiting Gait Function Decreased Activity Tolerance, Decreased Strength,Limited Range of Motion,Pain,Poor Balance,Poor Safety Awareness Stair Climbing Assessment Evaluation Level of Assist On Stairs Standby Assistance Devices Stair Climbing Assistive Devices Left Railing Technique/Endurance Stair Climbing Direction Ascend and Descend Stair Climbing Technique Step Over Step,Step to Step Number of Steps Climbed 3 Query Text: Stair Climbing Set # Repetitions (reps) 2 PT-Balance Assessment Sitting Balance and Reactions Static Sitting Balance Ability Normal Dynamic Sitting Balance Ability Good Standing Balance and Reactions Static Standing Balance Ability Good Dynamic Standing Balance Ability Fair Device Used without AD M5 PT-IP Objective Assessments Start: 04/23/21 12:16 Freq: NEEDED Status: Active Protocol: Document 04/23/21 10:25 [facility] (Rec: 04/23/21 12:45 AB [id number]) Orientation Orientation/Cognition Level of Alertness Alert Orientation Name,Age,Birthday,Month,Date, Year,Day of Week,Place, Situation Language Function Ability No Deficits Noted Safety Awareness Understands Safety Issues Memory Description No Deficits Noted Gross Range of Motion Lower Extremity ROM Assessment Within Functional Limits Strength Lower Extremity Strength Assessment Within Functional Limits Coordination Assessment Gross Coordination Gross Coordination WNL Sensation Assessment Sensation Gross Sensation WNL Muscle Tone Muscle Tone WNL Yes M6 PT-IP Treatment Start: 04/23/21 12:16 Freq: NEEDED Status: Active Protocol: Document 04/23/21 10:25 [facility] (Rec: 04/23/21 12:45 AB [id number]) Physical Therapy Treatment Education Education Provided Precautions,Weight Bearing Status,Post-Op Packet,Safety M7 PT-IP Assessment and Plan Start: 04/23/21 12:16 Freq: NEEDED Status: Active Protocol: Document 04/23/21 10:25 [facility] (Rec: 04/23/21 12:45 [facility] [id number]) PT Summary Assessment and Plan Potential Rehabilitation Potential Good Status of Condition at Evaluation Stable Summary Impairments Pain,ROM,Strength,Balance, Coordination,Sensation,Tone, Cognition,Bed Mobility, Transfers,Gait,Activity Tolerance Assessment Summary pt requiring SBA to CGA with mobility. recommending use of SPC for short distance/in house ambulation but to use FWW for long distance mobility . pt. plans to go home with spouse to assist him. pt may go home when medically stable. Goals Bed Mobility Goal Independent Transfer Goal Independent,Cane Gait Goal Independent,Cane Gait Distance 150 Other Goals ambulation without AD 150 ft SBA up/down 2 steps L rail mod I Days to Meet Goals 3 Frequency of Treatment Frequency Of Treatment Twice a Day Treatment Plan Physical Therapy Treatment Plan Bed Mobility Training,Transfer Training,Gait Training, Therapeutic Exercise,Balance Retraining,Post Op Education, Discharge Planning,Hot or Cold Pack,Neuromuscular Re-ed, Coordination Retraining,Manual Therapy Precautions Lumbar Precautions Log Roll,No Twisting,Limit Bending,Lifting Restriction of 10 lbs,Gait Belt above Incisional Area Recommendations To Nursing Amount of Assist Needed Standby Assistance Discharge Recommendations PT Discharge Recommendations Home with Assistance Transportation Needs at Discharge Private Vehicle
--- NOTE | 2021-04-23 12:59 | CM.IDA ---
Initial DCP Assessment Note Pt is a 65 yo male, resident of [place], now POD#1 p L4-5 TLIF,L5-S1 HWR,exploration of fusion,repeat laminectomy,reinsertion of hardware,L4-S1 PSF w/instrumentation, ROBOT - Patricia Kennedy MD PCP: Darion Emerson Payer: [facility]/BC [place] of state [place] Reviewed chart, pt discussed in multidisciplinary rounds this morning. Therapy has cleared pt for return home w/spouse to assist and pt has planned for home, DC order from Ortho has already been initiated this morning. No needs expected from DC planning team although will remain available in case this changes today. MICH Vivar
--- NOTE | 2021-04-23 13:07 | PC.NURSE ---
Pt received lying in bed Alert &Ox3. Pt reports good pain control 2-4/10 to back. VSS, afebrile on RA. Per orders Baldwin catheter removed and patient voids without difficulty. Pt eating 100% of meal this a.m. and receives clearance after participating from PT&OT. Dressing to back with shadow drainage, and new dressing applied. Marleny CDI. Pt's arrived to escort patient home. Pharmacy provided medications teaching. He verbalizes understanding of discharge instructions, follow up, medications, activity, diet, worsening of symtoms/infection, and states he has all of his belongings. RN escorted to private vehicle with via wheel chair.
== END 2021-04-23 12:30 | disposition home or self-care (01) | DRG 454 ==
PROVIDERS: Admitting Provider Orthopaedic Surgery Orthopaedic Surgery of the Spine; Referring Provider Orthopaedic Surgery Orthopaedic Surgery of the Spine; Visit Provider Orthopaedic Surgery Orthopaedic Surgery of the Spine
PROC: 0SG00AJ Fusion of Lumbar Vertebral Joint with Interbody Fusion Device, Posterior Approach, Anterior Column, Open Approach (ICD-10-PCS; principal; 2021-04-22 08:45)
DX: T84.038A Mechanical loosening of other internal prosthetic joint, initial encounter (principal); M96.0 Pseudarthrosis after fusion or arthrodesis; Z98.1 Arthrodesis status; M47.27 Other spondylosis with radiculopathy, lumbosacral region; Z87.891 Personal history of nicotine dependence; Z20.822 Contact with and (suspected) exposure to COVID-19; M48.061 Spinal stenosis, lumbar region without neurogenic claudication; E78.5 Hyperlipidemia, unspecified; M48.07 Spinal stenosis, lumbosacral region; M41.86 Other forms of scoliosis, lumbar region
CPT/HCPCS: 72100; 72131; 76000; 82962; 87635; 93005; 97161; 97165; 97530; 97535; C1776; C9803; C9290; J0330; J0690; J1100; J1170; J2250; J2405; J2704; J3010

== ENCOUNTER → 2022-01-15 09:48 | Outpatient (CLI) | payer MEDICARE, BC, SELFPAY ==
[2022-01-14 08:27] VITALS: BMI 26.6
[2022-01-15 13:41] LABS: COVID19 -Nasal RAPID Negative (Negative)
== END ==
PROVIDERS: Visit Provider Family Medicine Sleep Medicine
DX: Z20.822 Contact with and (suspected) exposure to COVID-19 (principal)
CPT/HCPCS: 87635; C9803

== ENCOUNTER 2022-01-18 07:43 | Day surgery (SDC) | payer MEDICARE, BC, SELFPAY ==
[2021-04-22 16:08] VITALS: BMI 26.6
[2022-01-14 08:27] VITALS: BMI 26.6
--- NOTE | 2022-01-18 | PATH_ITS ---
[facility] Accession Number: [id number] . 01 Material submitted: . colon - ASCENDING COLON POLYP . 02 Diagnosis: Ascending Colon Polyp: Multiple (approximately eight) portions of tubualr adenoma. MRV 01/20/2022 1058 Local . 02 Electronically signed: . Nai Valdivia MD, Pathologist NPI- [id number] . 01 Gross description: . ASCENDING COLON POLYP: Received in formalin are multiple fragment(s) of villalobos, soft tissue measuring 0.8 x 0.3 x 0.2 cm in aggregate submitted entirely in 1 cassette(s) /[facility] 01/19/2022 1513 Local . 02 Pathologist provided ICD-10: K63.5, Z86.010 . 02 CPT . 902006 Specimen Comment: A courtesy copy of this report has been sent to [facility] Performed at: 01 [facility] [address] [facility], [place], [place] [id number] MD Cory Coronel MD Phone: [phone] Performed at: 02 [facility] [address] [place], [place] [id number] MD Anne Reina MD Phone: [phone]
[2022-01-18] MEDS: SODIUM CHLORIDE 0.9% 1,000 ML 100 ML IV (08:04)
[2022-01-18 08:08] VITALS: BP 166/76; PULSE 56; RESP 16; TEMP 36; O2SAT 100; BMI 25.8
--- NOTE | 2022-01-18 08:31 | P.HP_ITS ---
History of Present Illness History of Present Illness Date Patient Seen: 01/18/22 Time Patient Seen: 08:31 Chief complaint: DX COLONOSCOPY Narrative: Personal history of colon polyps. He was suggested for a surveillance exam at this time. Last scope was about 5 years ago. Patient History Medical History Arthritis Colonic polyp GERD (gastroesophageal reflux disease) HLD (hyperlipidemia) Psoriasis Psoriatic arthritis Sciatica Surgical History History of lumbar spinal fusion (11/06/19) Hx of colonoscopy Hx of laminectomy (10/28/20) Family & Social History Social History: household members spouse Tobacco & Substance use: Smoking Status Former smoker alcohol intake current alcohol intake frequency a few times a week Substance Use Type does not use Meds Home Medications and Allergies Home Medications Medication Instructions Recorded Confirmed Type aspirin 81 mg tablet,delayed 81 mg PO DAILY 10/25/19 01/18/22 History release omeprazole 10 mg capsule,delayed 10 mg PO DAILY 10/25/19 01/18/22 History release simvastatin 20 mg tablet 20 mg PO BEDTIME 10/25/19 01/18/22 History celecoxib 200 mg capsule (Celebrex) 200 mg PO BID PRN #60 cap 11/07/19 01/18/22 Rx acetaminophen 325 mg tablet 650 mg PO Q6HR PRN #90 tab 04/23/21 01/18/22 Rx Allergies Allergy/AdvReac Type Severity Reaction Status Date / Time No Known Drug Allergies Allergy Verified 04/22/21 07:47 Review of Systems Review of Systems ROS: Yes All systems reviewed with the patient and are negative except as otherwise documented Exam Vital Signs (past 8 hours): - 01/18/22 08:08 Temperature 96.8 F L Pulse Rate 56 L Respiratory Rate 16 Blood Pressure 166/76 H Pulse Oximetry 100 Oxygen Delivery Method Room Air Const General: cooperative and comfortable Orientation: alert HENMT Head: normocephalic Ears: external ears normal Nose: external nose normal Face and sinus: normal facial exam Mouth: oral mucosae normal Eyes General: appearance normal, both eyes and all related structures Neck Neck: normal visual inspection Chest Chest: normal inspection of the chest Resp Effort & Inspection: normal respiratory effort Cardio Rate: regular rate GI Inspection: normal to inspection Skin General: no rashes or lesions noted and No jaundice Neuro General: patient alert and moves all extremities Cognition: normal cognition Speech: speech normal Extrem General: no pedal edema Psych Appearance: grossly normal Assessment & Plan Assessment & Plan narrative: Personal history of colon polyps. Colonoscopy is pursued today. Time Spent With Patient Critical Care time: I spent a total of [] minutes of critical care time on this patient's care tod ay; this time is exclusive of procedural time.
--- NOTE | 2022-01-18 08:33 | PM.PREOP ---
Pre-operative Note COVID-19 COVID-19 status: Negative Result date/Date tested (Pos, Neg/Pending): 01/15/22 Criteria for continued procedure: Possibility delay results in more complex future surgery or treatment Interval Note History & Physical reviewed/Exam performed by Physician: Yes Changes to H&P: No ASA Class (for procedural sedation): II
--- NOTE | 2022-01-18 09:25 | P.OP.COLON_ITS ---
Operative Date/Time/Diagnoses Date of procedure: 01/18/22 Time of procedure: 09:25 Pre-op diagnosis: Colon polyp history Post-op diagnosis: same Procedure & Clinicians Study performed: Colonoscopy with hot snare polypectomy Same procedure as scheduled: Yes Indications: Colon polyps Surgeon: Tj Morris Procedure Notes SCOAP/Timeout: Done Procedure in detail: After the risks and benefits were explained, written and verbal informed consent was obtained. The patient was brought into the procedure room and placed into the left lateral decubitus position. Please see nurse loan reviewer notes for sedation details. Digital rectal examination was accomplished. The scope was introduced into the patient and advanced under direct visualization to the cecum as identified by the appendiceal orifice and ileocecal valve. The scope was slowly withdrawn to carefully examine the mucosa for any defects or lesions. Comprehensive imaging was accomplished throughout the rectum including the dentate line. The colon was decompressed, the scope was then removed from the patient who tolerated the procedure well. Bowel prep adequate Adult colonoscope Scope withdrawal time: 8 minutes Sedation minutes: 16 Complications: none Impression: There was a 7 mm sessile polyp in the ascending colon removed with hot snare polypectomy. Grade 1 hemorrhoids were noted on direct endoscopic views. No additional pathology was appreciated throughout. Endoscopic diagnosis 1. Grade 1 hemorrhoids 2. Colon polyp Post-procedure Plan for aftercare: 1. Await histopathology 2. Repeat colonoscopy is suggested for 5 years time (I have not seen all of the histopathology and polyp size from his colonoscopy 5 years ago). Disposition: PACU
[2022-01-18 09:29] VITALS: BP 94/61; PULSE 62; RESP 12; TEMP 36.8; O2SAT 98
[2022-01-18 09:34] VITALS: BP 114/62; PULSE 56; RESP 16; O2SAT 98
[2022-01-18 09:36] VITALS: BP 116/62; PULSE 57; RESP 16; TEMP 37; O2SAT 98
== END 2022-01-18 09:50 | disposition home or self-care (01) ==
PROVIDERS: PCP Internal Medicine; Referring Provider Internal Medicine Gastroenterology; Visit Provider Internal Medicine Gastroenterology
PROC: 0DJD8ZZ Inspection of Lower Intestinal Tract, Via Natural or Artificial Opening Endoscopic (ICD-10-PCS; CPT 45378; principal; 2022-01-18 09:00)
DX: Z12.11 Encounter for screening for malignant neoplasm of colon (principal); Z86.010 Personal history of colon polyps; K64.0 First degree hemorrhoids; D12.2 Benign neoplasm of ascending colon
CPT/HCPCS: 45385